=== PATIENT | female | born 1960 | race Caucasian/White ===

== ENCOUNTER 2017-03-28 21:45 | Emergency (ER) | payer SELFPAY ==
[~2017-03-28] VITALS: Ht 167.6 cm; Wt 81.6 kg
--- NOTE | 2017-03-28 21:57 | PHYS DOC ---
Adult General Chief Complaint Chief Complaint: NAUSEA/VOMITING/DIARRHA HPI HPI Patient is a 56 year old female who presents with 2 weeks of a productive cough sinus congestion, generalized bodyaches. She states she's having nausea vomiting and loose stools. She states over the last 2 days anything she eats or drink she vomits back up. She's having come from the right side of her chest on the lateral wall of her right hemithorax under her shoulder. She states is worse when she coughs. She states she still having generalized body aches. She states she does not have a primary care physician and does smoke daily. Review of Systems Review of Systems Constitutional: Denies fever or chills [] Eyes: Denies change in visual acuity, redness, or eye pain [] HENT: Positive for nasal congestion, Denies sore throat [] Respiratory: Positive for cough, denies shortness of breath [] Cardiovascular: No additional information not addressed in HPI [] GI: Denies abdominal pain, bloody stools, positive for nausea, vomiting, diarrhea [] : Denies dysuria or hematuria [] Musculoskeletal: Denies back pain or joint pain [] Integument: Denies rash or skin lesions [] Neurologic: Denies headache, focal weakness or sensory changes [] Endocrine: Denies polyuria or polydipsia [] All other systems were reviewed and found to be within normal limits, except as documented in this note. Current Medications Current Medications Current Medications Medications (Trade) Dose Ordered Sig/Heydi Start Time Stop Time Status Last Admin Dose Admin Azithromycin 250 ml @ 250 mls/hr 1X ONCE 03/29/17 00:30 03/29/17 01:29 Ondansetron HCl (Zofran) 4 mg STK-MED ONCE 03/28/17 22:31 03/28/17 22:32 DC Sodium Chloride 1,000 ml @ 1,000 mls/hr Q1H 03/28/17 23:00 03/28/17 23:59 DC 03/28/17 23:00 1,000 MLS/HR Allergies Allergies Allergies Coded Allergies Type Severity Reaction Last Updated Verified Sulfa (Sulfonamide Antibiotics) Allergy Intermediate 03/28/17 Yes Physical Exam Physical Exam Constitutional: Well developed, well nourished, no acute distress, non-toxic appearance. [] HENT: Normocephalic, atraumatic, bilateral external ears normal, oropharynx moist, no oral exudates, nose normal. [] Eyes: PERRLA, EOMI, conjunctiva normal, no discharge. [] Neck: Normal range of motion, no tenderness, supple, no stridor. [] Cardiovascular:Heart rate regular rhythm, no murmur [] Lungs & Thorax: Bilateral breath sounds clear to auscultation [] Abdomen: Bowel sounds normal, soft, no tenderness, no masses, no pulsatile masses. [] Skin: Warm, dry, no erythema, no rash. [] Back: No tenderness, no CVA tenderness. [] Extremities: No tenderness, no cyanosis, no clubbing, ROM intact, no edema. [] Neurologic: Alert and oriented X 3, normal motor function, normal sensory function, no focal deficits noted. [] Psychologic: Affect normal, judgement normal, mood normal. [] Current Patient Data Vital Signs Vital Signs Date Time Temp Pulse Resp B/P (MAP) Pulse Ox O2 Delivery O2 Flow Rate FiO2 03/28/17 22:00 98.4 88 18 175/95 (121) 95 Room Air 98.4 Lab Values Laboratory Tests Test 03/28/17 22:44 White Blood Count 11.0 x10^3/uL (4.0-11.0) Red Blood Count 4.85 x10^6/uL (3.50-5.40) Hemoglobin 14.0 g/dL (12.0-15.5) Hematocrit 42.9 % (36.0-47.0) Mean Corpuscular Volume 88 fL (79-100) Mean Corpuscular Hemoglobin 29 pg (25-35) Mean Corpuscular Hemoglobin Concent 33 g/dL (31-37) Red Cell Distribution Width 13.9 % (11.5-14.5) Platelet Count 359 x10^3/uL (140-400) Neutrophils (%) (Auto) 82 % (31-73) H Lymphocytes (%) (Auto) 10 % (24-48) L Monocytes (%) (Auto) 6 % (0-9) Eosinophils (%) (Auto) 1 % (0-3) Basophils (%) (Auto) 0 % (0-3) Neutrophils # (Auto) 9.0 x10^3uL (1.8-7.7) H Lymphocytes # (Auto) 1.1 x10^3/uL (1.0-4.8) Monocytes # (Auto) 0.7 x10^3/uL (0.0-1.1) Eosinophils # (Auto) 0.2 x10^3/uL (0.0-0.7) Basophils # (Auto) 0.0 x10^3/uL (0.0-0.2) Prothrombin Time 12.3 SEC (11.7-14.0) Prothrombin Time INR 1.0 (0.8-1.1) PTT 30 SEC (24-38) Sodium Level 140 mmol/L (136-145) Potassium Level 3.8 mmol/L (3.5-5.1) Chloride Level 103 mmol/L (98-107) Carbon Dioxide Level 26 mmol/L (21-32) Anion Gap 11 (6-14) Blood Urea Nitrogen 20 mg/dL (7-20) Creatinine 0.9 mg/dL (0.6-1.0) Estimated GFR (Cockcroft-Gault) 64.5 Glucose Level 120 mg/dL (70-99) H Calcium Level 8.5 mg/dL (8.5-10.1) Total Bilirubin 0.3 mg/dL (0.2-1.0) Direct Bilirubin 0.1 mg/dL (0.0-0.2) Aspartate Amino Transferase (AST) 17 U/L (15-37) Alanine Aminotransferase (ALT) 30 U/L (14-59) Alkaline Phosphatase 163 U/L (46-116) H Creatine Kinase 49 U/L (26-192) Creatine Kinase MB (Mass) < 0.5 ng/mL (0.0-3.6) Creatine Kinase MB Relative Index % (0-4) Troponin I Quantitative < 0.017 ng/mL (0.000-0.055) Total Protein 6.6 g/dL (6.4-8.2) Albumin 3.1 g/dL (3.4-5.0) L Lipase 96 U/L (73-393) Laboratory Tests 03/28/17 22:44 Laboratory Tests 03/28/17 22:44 EKG EKG [] Radiology/Procedures Radiology/Procedures [] Course & Med Decision Making Course & Med Decision Making Pertinent Labs and Imaging studies reviewed. (See chart for details) [] Dragon Disclaimer Dragon Disclaimer This electronic medical record was generated, in whole or in part, using a voice recognition dictation system. Departure Departure Impression: Primary Impression: Nausea Disposition: 01 HOME, SELF-CARE Condition: STABLE Referrals: NON,STAFF (PCP) Patient Instructions: Acute Bronchitis, [id number], Nausea, Adult Additional Instructions: Your EKG, chest x-ray, labs and physical exam did not show any acute abnormalities. You received IV fluids, and he was given antibiotics for bronchitis. Your being discharged home. You are being discharged with antibiotics, prednisone, and inhalers. Please follow instructions on the prescription. You should follow-up with primary care physician within the next 3 -4 days. Return back to the ER if you have high fevers, generalized weakness, shortness of breath, chest discomfort, or other concerns. Scripts Albuterol Sulfate (PROAIR HFA INHALER) 8.5 Gm Hfa.aer.ad 1-2 PUFF INH PRN Q6HRS Y for SHORTNESS OF BREATH, #1 INHALER 0 Refills Prov: DIDI BERGERON MD 03/29/17 Prednisone (PREDNISONE) 50 Mg Tablet 1 TAB PO DAILY, #5 TAB Prov: DIDI BERGERON MD 03/29/17 Azithromycin (AZITHROMYCIN TABLET) 250 Mg Tablet 1 PKG PO UD, #6 TAB Prov: DIDI BERGERON MD 03/29/17 DIDI BERGERON MD Mar 28, 2017 21:57
[2017-03-28 22:00] VITALS: BP 175/95
[2017-03-28] MEDS ORDERED: ONDANSETRON PF 4 MG/2 ML VIAL. ONE (22:31)
[2017-03-28 22:59] LABS: BASO % 0 % (0-3); EOS % 1 % (0-3); HEMATOCRIT 42.9 % (36.0-47.0); LYMPH # 1.1 x10^3/uL (1.0-4.8); LYMPH % 10 % (24-48); MEAN CORPUSCULAR HEMOGLOBIN 29 pg (25-35); MEAN CORPUSCULAR HGB CONC 33 g/dL (31-37); MEAN CORPUSCULAR VOLUME 88 fL (79-100); MONO % 6 % (0-9); NEUT % 82 % (31-73); PLATELET COUNT 359 x10^3/uL (140-400); RED BLOOD COUNT 4.85 x10^6/uL (3.50-5.40); RED CELL DISTRIBUTION WIDTH 13.9 % (11.5-14.5)
[2017-03-28] MEDS ORDERED: IV NORMAL SALINE 1000ML BAG 1,000 ML IV SCH (23:00)
[2017-03-28] MEDS ORDERED: ONDANSETRON PF 4 MG/2 ML VIAL. IV ONE (23:00)
[2017-03-28 23:06] LABS: PROTHROMBIN TIME PATIENT 12.3 SEC (11.7-14.0)
[2017-03-28 23:09] LABS: CALCIUM 8.5 mg/dL (8.5-10.1); CREATININE 0.9 mg/dL (0.6-1.0); GFR 64.5; POTASSIUM 3.8 mmol/L (3.5-5.1)
[2017-03-28 23:16] LABS: ALBUMIN 3.1 g/dL (3.4-5.0); DIRECT BILIRUBIN 0.1 mg/dL (0.0-0.2); TOTAL BILIRUBIN 0.3 mg/dL (0.2-1.0); TOTAL PROTEIN 6.6 g/dL (6.4-8.2)
[2017-03-28 23:29] LABS: CKMB MASS < 0.5 ng/mL (0.0-3.6); CREATINE KINASE 49 U/L (26-192)
[2017-03-29] MEDS ORDERED: AZITHRMYCN 500MG IVPB FOR OMNI 250 ML IV ONE (00:30)
[2017-03-29] MEDS ORDERED: AZIT250T6 PO (00:48)
[2017-03-29] MEDS ORDERED: PRED50TA PO (00:48)
[2017-03-29] MEDS ORDERED: PROAIR HFA8.5 GM INH (00:48)
--- NOTE | 2017-03-29 06:14 | EKG ---
[facility] [address] [place] [address] Test Date: 2017-03-28 Test Time: 22:45:25 Pat Name: TIMMY RANGEL Department: Room: Gender: F [employer]: : 1960 Requested By: DIDI BERGERON Order Number: [id number] Reading MD: Measurements Intervals [place] Rate: 84 P: 41 [place]: 194 QRS: -32 QRSD: 96 T: 70 QT: 388 QTc: 461 Interpretive Statements SINUS RHYTHM ABNORMAL LEFT AXIS DEVIATION LEFT ANTERIOR FASCICULAR BLOCK NON SPECIFIC T ABNORMALITY ABNORMAL ECG No previous ECG available for comparison
--- NOTE | 2017-03-29 07:49 | RAD ---
Acute abdomen series with chest, 3 views, 03/28/2017: History: Right lower quadrant abdominal pain Gas is present in large and small bowel extending down to the rectal level. There is only slight dilatation of several small bowel loops. Small scattered air-fluid levels are seen. The findings suggest a generalized ileus. No free air is present in the abdomen. Surgical clips are present in the right upper quadrant and in the left lower pelvis. The left ureteral stent evident on the 02/28/2011 study has been removed. The heart size and pulmonary vascularity are normal. The lungs are clear. There is no evidence of pleural fluid. IMPRESSION: Scattered air-fluid levels in the GI tract suggests a mild ileus.
== END 2017-03-29 01:40 | disposition home or self-care (01) ==
LOC: ER 21:45
DX: R11.2 Nausea with vomiting, unspecified (principal); R19.7 Diarrhea, unspecified; M79.1 Myalgia; R09.81 Nasal congestion; Z88.2 Allergy status to sulfonamides
CPT/HCPCS: 36415; 74022; 80048; 80076; 82553; 83690; 84484; 85025; 85610; 85730; 93005; 96365; 96375; 99285; J0456; J2405; J7030

== ENCOUNTER 2018-03-17 14:33 | Inpatient (IN) | payer SELFPAY ==
[~2018-03-17] VITALS: Ht 170.2 cm; Wt 74.8 kg
[~2018-03-17 14:33] MED LIST: AMLO10TA6 PO; ASPI325T11 PO; ATOR10TA60 PO; AZIT250T6 PO; PRED50TA PO; PROAIR HFA8.5 GM INH
[2018-03-17] MEDS ORDERED: IV NORMAL SALINE 1000ML BAG 1,000 ML IV ONE (15:00)
[2018-03-17 15:02] LABS: BASO # 0.1 x10^3/uL (0.0-0.2); BASO % 1 % (0-3); EOS # 0.3 x10^3/uL (0.0-0.7); EOS % 3 % (0-3); HEMATOCRIT 43.2 % (36.0-47.0); HEMOGLOBIN 14.7 g/dL (12.0-15.5); LYMPH # 2.8 x10^3/uL (1.0-4.8); LYMPH % 29 % (24-48); MEAN CORPUSCULAR HEMOGLOBIN 30 pg (25-35); MEAN CORPUSCULAR HGB CONC 34 g/dL (31-37); MEAN CORPUSCULAR VOLUME 89 fL (79-100); MONO # 0.9 x10^3/uL (0.0-1.1); MONO % 9 % (0-9); NEUT # 5.7 x10^3uL (1.8-7.7); NEUT % 58 % (31-73); PLATELET COUNT 422 x10^3/uL (140-400); RED BLOOD COUNT 4.87 x10^6/uL (3.50-5.40); RED CELL DISTRIBUTION WIDTH 13.6 % (11.5-14.5); WHITE BLOOD COUNT 9.8 x10^3/uL (4.0-11.0)
--- NOTE | 2018-03-17 15:05 | EKG ---
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 Electronically Signed On 03-19-2018 9:08:35 POLE PEELER by Devaughn Barnes
[2018-03-17 15:11] LABS: CALCIUM 9.6 mg/dL (8.5-10.1); CREATININE 1.2 mg/dL (0.6-1.0); GFR 46.1; POTASSIUM 3.9 mmol/L (3.5-5.1); PROTHROMBIN TIME PATIENT 13.2 SEC (11.7-14.0)
[2018-03-17 15:17] LABS: ALBUMIN 3.4 g/dL (3.4-5.0); ALBUMIN/GLOBULIN RATIO 0.8 (1.0-1.7); MAGNESIUM 2.2 mg/dL (1.8-2.4); TOTAL BILIRUBIN 0.4 mg/dL (0.2-1.0); TOTAL PROTEIN 7.9 g/dL (6.4-8.2)
--- NOTE | 2018-03-17 15:18 | PHYS DOC ---
Past Medical History Past Medical History: CVA, Hypertension Past Surgical History: Cholecystectomy Additional Past Surgical Histo: STENTS Alcohol Use: None Drug Use: None Adult General Chief Complaint Chief Complaint: NEURO SYMPTOMS/DEFICITS HPI HPI Patient is a 57 year old female who presents with worsening R sided weakness and slowed speech. 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 Pt notes last known well at 12 pm today but notes changes in speech and balance over the last 2 days. Pt notes she has been taking aspirin and other medications as prescribed from when she was discharged from the hospital on . Pt also noting that she had chest pain and generalized weakness yesterday. Denies trauma. Denies fever/chills. Review of Systems Review of Systems Constitutional: Denies fever or chills [] Eyes: Denies change in visual acuity, redness, or eye pain [] HENT: Denies nasal congestion or sore throat [] Respiratory: Denies cough or shortness of breath [] Cardiovascular: Notes chest pain, denies palpitations[] GI: Denies abdominal pain, nausea, vomiting, bloody stools or diarrhea [] : Denies dysuria or hematuria [] Musculoskeletal: Denies back pain or joint pain [] Integument: Denies rash or skin lesions [] Neurologic: Denies headache or sensory changes. Notes R sided weakness [] Complete other systems were reviewed and found to be within normal limits, except as documented in this note. Current Medications Current Medications Current Medications Medications (Trade) Dose Ordered Sig/Heydi Start Time Stop Time Status Last Admin Dose Admin Ondansetron HCl (Zofran) 4 mg PRN Q8HRS PRN 03/17/18 15:45 03/18/18 15:44 Sodium Chloride 1,000 ml @ 1,000 mls/hr 1X ONCE 03/17/18 15:00 03/17/18 15:59 Allergies Allergies Allergies Coded Allergies Type Severity Reaction Last Updated Verified Sulfa (Sulfonamide Antibiotics) Allergy Intermediate 03/28/17 Yes codeine Allergy Intermediate 02/01/18 Yes Physical Exam Physical Exam Constitutional: Well developed, well nourished, no acute distress, non-toxic appearance. [] HENT: Normocephalic, atraumatic, oropharynx moist, no oral exudates, nose normal. [] Eyes: PERRL, EOMI, conjunctiva normal, no discharge. [] Neck: Normal range of motion, no tenderness, supple, no stridor. [] Cardiovascular:Heart rate regular rhythm, no murmur [] Lungs & Thorax: Bilateral breath sounds clear to auscultation [] Abdomen: Bowel sounds normal, soft, no tenderness, nondistended, no guarding. [ ] Skin: Warm, dry, no erythema, no rash. [] Back: No tenderness, no CVA tenderness. [] Extremities: No tenderness, no cyanosis, ROM intatct, no edema. [] Neurologic: Alert and oriented X 3, normal motor function other than RUE +4/5 and RLE +3/5, normal sensory function, normal cerebellar function. [] Psychologic: Affect normal, judgement normal, mood normal. [] Current Patient Data Vital Signs Vital Signs Date Time Temp Pulse Resp B/P (MAP) Pulse Ox O2 Delivery O2 Flow Rate FiO2 03/17/18 14:41 97.7 16 144/83 (103) Room Air 97.7 Lab Values Laboratory Tests Test 03/17/18 14:48 03/17/18 14:50 Glucose (Fingerstick) 98 mg/dL (70-99) White Blood Count 9.8 x10^3/uL (4.0-11.0) Red Blood Count 4.87 x10^6/uL (3.50-5.40) Hemoglobin 14.7 g/dL (12.0-15.5) Hematocrit 43.2 % (36.0-47.0) Mean Corpuscular Volume 89 fL (79-100) Mean Corpuscular Hemoglobin 30 pg (25-35) Mean Corpuscular Hemoglobin Concent 34 g/dL (31-37) Red Cell Distribution Width 13.6 % (11.5-14.5) Platelet Count 422 x10^3/uL (140-400) H Neutrophils (%) (Auto) 58 % (31-73) Lymphocytes (%) (Auto) 29 % (24-48) Monocytes (%) (Auto) 9 % (0-9) Eosinophils (%) (Auto) 3 % (0-3) Basophils (%) (Auto) 1 % (0-3) Neutrophils # (Auto) 5.7 x10^3uL (1.8-7.7) Lymphocytes # (Auto) 2.8 x10^3/uL (1.0-4.8) Monocytes # (Auto) 0.9 x10^3/uL (0.0-1.1) Eosinophils # (Auto) 0.3 x10^3/uL (0.0-0.7) Basophils # (Auto) 0.1 x10^3/uL (0.0-0.2) Prothrombin Time 13.2 SEC (11.7-14.0) Prothrombin Time INR 1.1 (0.8-1.1) PTT 31 SEC (24-38) Sodium Level 140 mmol/L (136-145) Potassium Level 3.9 mmol/L (3.5-5.1) Chloride Level 105 mmol/L (98-107) Carbon Dioxide Level 24 mmol/L (21-32) Anion Gap 11 (6-14) Blood Urea Nitrogen 24 mg/dL (7-20) H Creatinine 1.2 mg/dL (0.6-1.0) H Estimated GFR (Cockcroft-Gault) 46.1 BUN/Creatinine Ratio 20 (6-20) Glucose Level 106 mg/dL (70-99) H Calcium Level 9.6 mg/dL (8.5-10.1) Magnesium Level 2.2 mg/dL (1.8-2.4) Total Bilirubin 0.4 mg/dL (0.2-1.0) Aspartate Amino Transferase (AST) 20 U/L (15-37) Alanine Aminotransferase (ALT) 32 U/L (14-59) Alkaline Phosphatase 167 U/L (46-116) H Creatine Kinase 73 U/L (26-192) Creatine Kinase MB (Mass) 1.3 ng/mL (0.0-3.6) Creatine Kinase MB Relative Index % (0-4) Troponin I Quantitative < 0.017 ng/mL (0.000-0.055) Total Protein 7.9 g/dL (6.4-8.2) Albumin 3.4 g/dL (3.4-5.0) Albumin/Globulin Ratio 0.8 (1.0-1.7) L Laboratory Tests 03/17/18 14:50 Laboratory Tests 03/17/18 14:50 EKG EKG Rate 78, RI 194, QTc 444. Sinus, No STEMI, left axis deviation, left anterior fascicular block. Compared with prior EKG done on 01/31/18, no significant change noted. [] Radiology/Procedures Radiology/Procedures PROCEDURE: CT CODE STROKE HEAD WO CT of the head without contrast, 03/17/2018: HISTORY: Right-sided weakness, slurred speech Comparison is made to a study from 01/31/2018. There are patchy lucencies in the deep white matter bilaterally as well as in the basal ganglia. These are unchanged and are compatible with old infarcts. A high right frontoparietal lucency is unchanged and is compatible with encephalomalacia due to an old infarct. On the previous study there was a lucency in the pablo, however, there is now a new 9 mm focus of increased density within the left side of the pablo. This lies at the level where an acute appearing infarct was identified on the MR study of 02/01/2018. The appearance suggests subacute hemorrhage. Developing calcification is less likely. There is no significant mass effect in this region. The ventricles are within normal limits in size. There is no shift of the midline structures. IMPRESSION: 1. Multiple old cerebral, basal ganglia and pontine infarcts. 2. New focus of increased density within the left pablo corresponding to site of a recent infarct. This probably represents subacute hemorrhage. 3. MR scanning may be useful for further evaluation, if clinically indicated. Note: The findings were called to personnel in the [facility] ER at 3:23 PM on 03/17/2018. RS Compliance Statement: One or more of the following individualized dose reduction techniques were utilized for this examination: 1. Automated exposure control 2. Adjustment of the mA and/or kV according to patient size 3. Use of iterative reconstruction technique Electronically signed by: Mika Christine MD (03/17/2018 3:28 PM) [facility] PROCEDURE: PORTABLE CHEST 1V Exam: AP portable chest History: Increased right-sided weakness. Comparison: January 31, 2018. Findings: The heart and mediastinal structures are within normal limits for size. Lungs are without infiltrate. No pleural effusion or pneumothorax is identified. Impression: 1. No acute cardiopulmonary process. Electronically signed by: Reji Wasserman MD (03/17/2018 3:29 PM) [place] [id number] Course & Med Decision Making Course & Med Decision Making 57 yo female with ischemic CVA on 01/31/18 presenting with worsening R sided weakness. Pt states LKW was 2.5 hours before presentation but states changes have been present for 2 days. Patient NIHSS 4. Labs obtained and posted to chart. CT head with findings consistent for subacute hemorrhage around prior ischemic CVA. Discussed case with Dr. Marie (neurology) who is in agreement with consultation. Patient requiring admission for further evaluation and treatment. Discussed with Dr. Miguel (hospitalist) who is in agreement with admission. Discussed findings and plan with patient and family, who acknowledge understanding and agreement. [] Dragon Disclaimer Dragon Disclaimer This electronic medical record was generated, in whole or in part, using a voice recognition dictation system. Departure Departure Impression: Primary Impression: Subacute intracranial hemorrhage Disposition: ADMITTED INPATIENT Admitting Physician: Cecily Miguel Condition: GUARDED Referrals: NO PCP (PCP) NIHSS Stroke Scale NIH Stroke Scale: NIH Stroke Scale Response (Comments) Value Level of Consciousness: 0 Alert/Responsive 0 LOC Questions: 0 Answers both correctly 0 LOC Commands: 0 Performs both tasks 0 Best Gaze: 0 Normal 0 Visual: 0 No visual loss 0 Facial Palsy: 1 Minor paralysis 1 Motor - Left Arm 0 No drift 0 Motor - Right Arm 1 Drifts but can hold 1 Motor - Left Leg 0 No drift 0 Motor: Right Leg 1 Drift but can hold 1 Limb Ataxia: 0 Absent 0 Sensory: 0 No loss 0 Best Language: 1 Mild to mod aphasia 1 Dysathria: 0 Normal 0 Extinction and Inattention: 0 Normal 0 Total 4 Critical Care Time Critical care time was 30 minutes which includes time at bedside, spent in discussion of patient's care with specialists and/or family members, with interpretation of laboratory and/or radiological studies and is exclusive of procedures. REJI MARTE DO Mar 17, 2018 15:18
[2018-03-17 15:25] LABS: CREATINE KINASE 73 U/L (26-192)
--- NOTE | 2018-03-17 15:31 | RAD ---
CT of the head without contrast, 03/17/2018: HISTORY: Right-sided weakness, slurred speech Comparison is made to a study from 01/31/2018. There are patchy lucencies in the deep white matter bilaterally as well as in the basal ganglia. These are unchanged and are compatible with old infarcts. A high right frontoparietal lucency is unchanged and is compatible with encephalomalacia due to an old infarct. On the previous study there was a lucency in the pablo, however, there is now a new 9 mm focus of increased density within the left side of the pablo. This lies at the level where an acute appearing infarct was identified on the MR study of 02/01/2018. The appearance suggests subacute hemorrhage. Developing calcification is less likely. There is no significant mass effect in this region. The ventricles are within normal limits in size. There is no shift of the midline structures. IMPRESSION: 1. Multiple old cerebral, basal ganglia and pontine infarcts. 2. New focus of increased density within the left pablo corresponding to site of a recent infarct. This probably represents subacute hemorrhage. 3. MR scanning may be useful for further evaluation, if clinically indicated. Note: The findings were called to personnel in the [facility] ER at 3:23 PM on 03/17/2018. PQRS Compliance Statement: One or more of the following individualized dose reduction techniques were utilized for this examination: 1. Automated exposure control 2. Adjustment of the mA and/or kV according to patient size 3. Use of iterative reconstruction technique Electronically signed by: Mika Christine MD (03/17/2018 3:28 PM) [facility]
--- NOTE | 2018-03-17 15:32 | RAD ---
Exam: AP portable chest History: Increased right-sided weakness. Comparison: January 31, 2018. Findings: The heart and mediastinal structures are within normal limits for size. Lungs are without infiltrate. No pleural effusion or pneumothorax is identified. Impression: 1. No acute cardiopulmonary process. Electronically signed by: Reji Wasserman MD (03/17/2018 3:29 PM) [place] [id number]
[2018-03-17] MEDS ORDERED: ONDANSETRON PF 4 MG/2 ML VIAL. IV PRN ×2 (15:45→16:15)
[2018-03-17] MEDS ORDERED: PHARMACY TO REVIEW MEDS MC PRN (16:15)
[2018-03-17] MEDS ORDERED: ACETAMINOPHEN 650 MG SUPP.RECT. PR PRN (16:15)
[2018-03-17] MEDS ORDERED: LABETALOL 20 MG/4 ML DISP.SYRIN. IVP PRN (16:15)
--- NOTE | 2018-03-17 16:21 | PDOC2 ---
NEUROLOGY CONSULT Date of Admission Date of Admission DATE: 03/17/18 TIME: 16:04 Reason for Consult Reason for Consult: Stroke symptoms Referring Physician Referring Physician: Dr. Miguel Source Source: Caregiver (), Chart review, Patient History of Present Illness History of Present Illness The patient is a 57-year-old right-handed female who had a left pontine stroke for which I saw her 6 weeks ago during her [facility] stay. She did not have insurance benefits for rehabilitation so went home. She had been doing well until the last few days when she has noticed some increased dysarthria and right-sided weakness and clumsiness. She did have a headache last night which persists, 09/29. She denies any headache injuries or seizures. She has been taking all of her medications but admits that she continues to smoke cigarettes. Past Medical History Cardiovascular: HTN, Hyperlipidemia CENTRAL NERVOUS SYSTEM: CVA Past Surgical History Past Surgical History: No pertinent history Family History Family History: CVA Social History Social History , smokes a half a pack of cigarettes per day, rare alcohol Current Medications Current Medications Current Medications Sodium Chloride 1,000 ml @ 1,000 mls/hr 1X ONCE IV ; Start 03/17/18 at 15:00 ; Stop 03/17/18 at 15:59; Status DC Ondansetron HCl (Zofran) 4 mg PRN Q8HRS PRN IV NAUSEA/VOMITING; Start at 15:45; Stop 03/18/18 at 15:44 Active Scripts Active Aspirin Ec (Aspirin) 325 Mg Tablet.dr 325 Mg PO DAILYWBKFT 30 Days Amlodipine Besylate 10 Mg Tablet 10 Mg PO DAILY 30 Days Atorvastatin Calcium 10 Mg Tablet 10 Mg PO QHS 30 Days Proair Hfa Inhaler (Albuterol Sulfate) 8.5 Gm Hfa.aer.ad 1-2 Puff INH PRN Q6HRS PRN Allergies Allergies: Coded Allergies: Sulfa (Sulfonamide Antibiotics) (Verified Allergy, Intermediate, 03/28/17) codeine (Verified Allergy, Intermediate, 02/01/18) ROS Review of System Negative for fever, chills, weight loss, shortness of breath, chest pain, indigestion, hematochezia, melena, and dysuria. Full 14-point review of systems is negative. Physical Exam Physical Examination General: Well-developed, well-nourished, white female, in no acute distress HEENT: Normocephalic andatraumatic.Temporal arteriespulsatile and nontender. Neck: Supple without bruit, no meningismus Musculoskeletal: Stability:see neurologic. Gait exam:see neurologic. Tone:see neurologic. Strength:see neurologic. Neurological: Mental Status:intact, orientation, memory, attention span/concentration, language, fund of knowledge normal. Cranial Nerves:Pupils equal and reactive to light, extraocular movements areintact, visual palmer are full to confrontation. Facial sensation is normal. There is no facial asymmetry. Vestibulo-ocular reflex is intact. Palate elvates and tongue protrudes in midline. All other cranial related problems are negative except as mentioned before.Reflexes:2+ and symmetric with flexor plantar responses. Motor:5-/5 right hemiparesis, otherwise 5/5 strength with normal tone and bulk. Coordination:Right dysmetria. Rapid alternating movements and fine finger movements are intact. Gait:not examined. Sensory:Normal pinprick, vibration, light touch, proprioception. Vitals VITALS Vital Signs Date Time Temp Pulse Resp B/P (MAP) Pulse Ox O2 Delivery O2 Flow Rate FiO2 03/17/18 14:41 97.7 16 144/83 (103) Room Air 97.7 Labs Labs Laboratory Tests Test 03/17/18 14:48 03/17/18 14:50 Glucose (Fingerstick) 98 mg/dL (70-99) White Blood Count 9.8 x10^3/uL (4.0-11.0) Red Blood Count 4.87 x10^6/uL (3.50-5.40) Hemoglobin 14.7 g/dL (12.0-15.5) Hematocrit 43.2 % (36.0-47.0) Mean Corpuscular Volume 89 fL (79-100) Mean Corpuscular Hemoglobin 30 pg (25-35) Mean Corpuscular Hemoglobin Concent 34 g/dL (31-37) Red Cell Distribution Width 13.6 % (11.5-14.5) Platelet Count 422 x10^3/uL (140-400) Neutrophils (%) (Auto) 58 % (31-73) Lymphocytes (%) (Auto) 29 % (24-48) Monocytes (%) (Auto) 9 % (0-9) Eosinophils (%) (Auto) 3 % (0-3) Basophils (%) (Auto) 1 % (0-3) Neutrophils # (Auto) 5.7 x10^3uL (1.8-7.7) Lymphocytes # (Auto) 2.8 x10^3/uL (1.0-4.8) Monocytes # (Auto) 0.9 x10^3/uL (0.0-1.1) Eosinophils # (Auto) 0.3 x10^3/uL (0.0-0.7) Basophils # (Auto) 0.1 x10^3/uL (0.0-0.2) Prothrombin Time 13.2 SEC (11.7-14.0) Prothromb Time International Ratio 1.1 (0.8-1.1) Activated Partial Thromboplast Time 31 SEC (24-38) Sodium Level 140 mmol/L (136-145) Potassium Level 3.9 mmol/L (3.5-5.1) Chloride Level 105 mmol/L (98-107) Carbon Dioxide Level 24 mmol/L (21-32) Anion Gap 11 (6-14) Blood Urea Nitrogen 24 mg/dL (7-20) Creatinine 1.2 mg/dL (0.6-1.0) Estimated GFR (Cockcroft-Gault) 46.1 BUN/Creatinine Ratio 20 (6-20) Glucose Level 106 mg/dL (70-99) Calcium Level 9.6 mg/dL (8.5-10.1) Magnesium Level 2.2 mg/dL (1.8-2.4) Total Bilirubin 0.4 mg/dL (0.2-1.0) Aspartate Amino Transf (AST/SGOT) 20 U/L (15-37) Alanine Aminotransferase (ALT/SGPT) 32 U/L (14-59) Alkaline Phosphatase 167 U/L (46-116) Creatine Kinase 73 U/L (26-192) Creatine Kinase MB (Mass) 1.3 ng/mL (0.0-3.6) Creatine Kinase MB Relative Index % (0-4) Troponin I Quantitative < 0.017 ng/mL (0.000-0.055) Total Protein 7.9 g/dL (6.4-8.2) Albumin 3.4 g/dL (3.4-5.0) Albumin/Globulin Ratio 0.8 (1.0-1.7) Laboratory Tests Test 03/17/18 14:48 03/17/18 14:50 Glucose (Fingerstick) 98 mg/dL (70-99) White Blood Count 9.8 x10^3/uL (4.0-11.0) Red Blood Count 4.87 x10^6/uL (3.50-5.40) Hemoglobin 14.7 g/dL (12.0-15.5) Hematocrit 43.2 % (36.0-47.0) Mean Corpuscular Volume 89 fL (79-100) Mean Corpuscular Hemoglobin 30 pg (25-35) Mean Corpuscular Hemoglobin Concent 34 g/dL (31-37) Red Cell Distribution Width 13.6 % (11.5-14.5) Platelet Count 422 x10^3/uL (140-400) Neutrophils (%) (Auto) 58 % (31-73) Lymphocytes (%) (Auto) 29 % (24-48) Monocytes (%) (Auto) 9 % (0-9) Eosinophils (%) (Auto) 3 % (0-3) Basophils (%) (Auto) 1 % (0-3) Neutrophils # (Auto) 5.7 x10^3uL (1.8-7.7) Lymphocytes # (Auto) 2.8 x10^3/uL (1.0-4.8) Monocytes # (Auto) 0.9 x10^3/uL (0.0-1.1) Eosinophils # (Auto) 0.3 x10^3/uL (0.0-0.7) Basophils # (Auto) 0.1 x10^3/uL (0.0-0.2) Prothrombin Time 13.2 SEC (11.7-14.0) Prothromb Time International Ratio 1.1 (0.8-1.1) Activated Partial Thromboplast Time 31 SEC (24-38) Sodium Level 140 mmol/L (136-145) Potassium Level 3.9 mmol/L (3.5-5.1) Chloride Level 105 mmol/L (98-107) Carbon Dioxide Level 24 mmol/L (21-32) Anion Gap 11 (6-14) Blood Urea Nitrogen 24 mg/dL (7-20) Creatinine 1.2 mg/dL (0.6-1.0) Estimated GFR (Cockcroft-Gault) 46.1 BUN/Creatinine Ratio 20 (6-20) Glucose Level 106 mg/dL (70-99) Calcium Level 9.6 mg/dL (8.5-10.1) Magnesium Level 2.2 mg/dL (1.8-2.4) Total Bilirubin 0.4 mg/dL (0.2-1.0) Aspartate Amino Transf (AST/SGOT) 20 U/L (15-37) Alanine Aminotransferase (ALT/SGPT) 32 U/L (14-59) Alkaline Phosphatase 167 U/L (46-116) Creatine Kinase 73 U/L (26-192) Creatine Kinase MB (Mass) 1.3 ng/mL (0.0-3.6) Creatine Kinase MB Relative Index % (0-4) Troponin I Quantitative < 0.017 ng/mL (0.000-0.055) Total Protein 7.9 g/dL (6.4-8.2) Albumin 3.4 g/dL (3.4-5.0) Albumin/Globulin Ratio 0.8 (1.0-1.7) Images Images CT head today: There are patchy lucencies in the deep white matter bilaterally as well as in the basal ganglia. These are unchanged and are compatible with old infarcts. A high right frontoparietal lucency is unchanged and is compatible with encephalomalacia due to an old infarct. On the previous study there was a lucency in the pablo, however, there is now a new 9 mm focus of increased density within the left side of the pablo. This lies at the level where an acute appearing infarct was identified on the MR study of 02/01/2018. The appearance suggests subacute hemorrhage. Developing calcification is less likely. There is no significant mass effect in this region. The ventricles are within normal limits in size. There is no shift of the midline structures. IMPRESSION: 1. Multiple old cerebral, basal ganglia and pontine infarcts. 2. New focus of increased density within the left pablo corresponding to site of a recent infarct. This probably represents subacute hemorrhage. 3. MR scanning may be useful for further evaluation, if clinically indicated. 01/31/18: MRI brain: There is approximate 1 cm AP by 0.5 cm transverse focus of restricted diffusion of the left pablo, associated mild T2 and FLAIR hyperintense signal. There are other old lacunar infarcts of the bilateral pablo, bilateral cerebellum, bilateral thalami, right periatrial white matter, bilateral basal ganglia, modi radiata. There is no abnormal intracranial enhancement. There is no midline shift. Ventricular size is within normal limits. There is likely small arachnoid cyst right parietal vertex about 1.5 cm. There is other scattered multifocal overall mild T2 and FLAIR hyperintense signal abnormality of the supratentorial parenchyma bilaterally. There is mild left maxillary sinus mucosal thickening. Mastoid air cells are aerated. Cerebellar tonsils are normal in location. Pituitary gland is small. There is slightly disconjugate gaze. Impression: 1. There is a recent acute/early subacute infarct of the left pablo. There are multiple old bilateral lacunar infarcts as stated, other mild T2 and FLAIR hyperintense abnormality of the supratentorial parenchyma which may be due to chronic microvascular ischemic disease. Carotids: RIGHT: PSV cm/sec EDV cm/sec Common carotid artery 58 14 Maximal internal carotid artery 63 19 External carotid artery 69 Vertebral artery 48 ICA/CCA ratio 1.07 LEFT: PSV cm/sec EDV cm/sec Common carotid artery 75 15 Maximum internal carotid artery 55 19 External carotid artery 105 Vertebral artery 38 ICA/CCA ratio 0.73 Velocities used to determine stenosis are known to correlate with NASCET angiographic criteria. There is antegrade flow in the bilateral vertebral arteries. No significant stenosis is demonstrated on grayscale or color images. There is minimal plaque. Impression: 1. There is no evidence of a hemodynamically significant stenosis. Assessment/Plan Assessment/Plan Impression: Hemorrhage in region of prior left pontine acute lacunar type stroke with right hemiparesis and some dysarthria Noncompliance (still smoking) Recommendations: MRI of the brain CT angiogram Rehabilitation modalities Hold aspirin and anticoagulants Statin Blood pressure parameters per protocol Given the overall exam and condition I see no need for ICU monitoring I again counseled the patient to stop smoking and she is willing to do so. Thank you for letting me help with the patient's care. ALBERTO TVOAR MD Mar 17, 2018 16:21
[2018-03-17 16:30] VITALS: BP 112/82
[2018-03-17] MEDS ORDERED: ALBUTEROL SULFATE 2.5 MG/3 ML NEBU. NEB PRN (16:30)
[2018-03-17] MEDS: IV NORMAL SALINE 1000ML BAG 1,000 ML IV SCH (16:30)
[2018-03-17] MEDS: amLODIPine BESYLATE 10 MG TABLET PO SCH (17:00)
[2018-03-17 19:30] VITALS: BP 123/83
--- NOTE | 2018-03-17 19:52 | HP ---
ADMIT DATE: 03/17/2018 CHIEF COMPLAINT: Right arm weakness. HISTORY OF PRESENT ILLNESS: The patient is a pleasant middle-aged female who we admitted about a month ago with a stroke. She had right-sided weakness. She went home with that and was doing relatively well and was getting better, but now suddenly the weakness on the right got worse. We did a CAT scan in the ER. She does have some worsening of some extension of the stroke and maybe even a little bit of blood surrounding that, rates her symptoms at 9/10 with associated anxiety. Symptoms are worse with trying to move. She tried taking some home meds, but that did not help. I have discussed the case with ER physician. We are going to admit the patient and consult Neurology. PAST MEDICAL HISTORY: Hypertension, stroke, cholecystectomy, cardiac stents. ALLERGIES: SULFA AND CODEINE. FAMILY HISTORY: Strokes. SOCIAL HISTORY: She does not drink, smoke or take drugs. MEDICATIONS: Reviewed, please refer to MRAD. She is on 4 home medications including albuterol, atorvastatin, amlodipine, aspirin. REVIEW OF SYSTEMS: GENERAL: No history of weight change, weakness or fevers. SKIN: No bruising, hair changes or rashes. EYES: No blurred, double or loss of vision. NOSE AND THROAT: No history of nosebleeds, hoarseness or sore throat. HEART: No history of palpitations, chest pain or shortness of breath on exertion. LUNGS: Denies cough, hemoptysis, wheezing or shortness of breath. GASTROINTESTINAL: Denies changes in appetite, nausea, vomiting, diarrhea or constipation. GENITOURINARY: No history of frequency, urgency, hesitancy or nocturia. NEUROLOGIC: She complains of right-arm weakness. PSYCHIATRIC: No history of panic, anxiety or depression. ENDOCRINE: No history of heat or cold intolerance, polyuria or polydipsia. EXTREMITIES: Denies muscle weakness, joint pain, pain on walking or stiffness. PHYSICAL EXAMINATION: VITAL SIGNS: Temperature 98, pulse 84, respirations 17, blood pressure 112/82, O2 sat 95%. GENERAL: She is alert, cooperative, flat affect, but this seems to be her baseline. HEART: Distant S1, S2. LUNGS: Clear to auscultation. ABDOMEN: Soft, positive bowel sounds, no organomegaly. EXTREMITIES: Trace edema. Pedal pulses are intact. ENDOCRINE: No thyromegaly. LYMPHATICS: No cervical chain or axillary nodes were noted. HEMATOPOIETIC: No bruising. PSYCHIATRIC: She is a little depressed. 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 LABORATORY DATA: Hematology is normal. Electrolytes are normal other than a BUN of 24, creatinine 1.2, glucose 106. Troponin is 0. INR is 1. CT of the head shows extension of stoke with a little bit of blood. ASSESSMENT AND PLAN: Acute on chronic stroke with extension of her stroke. There is also a subacute hemorrhage. The patient has been admitted. We will consult Neurology and consult Neurosurgery. PT, OT and Speech Therapy. Resume home medicines, cardiac monitoring. We will need to reimage her brain in a day or two. Full code. Seizure precautions, p.r.n. Zofran, clear liquid diet. DVT prophylaxis and p.r.n. narcotics for pain. SILVINO JOHNSON DO DR: FERNANDO/lavelle JOB#: [id number] / [id number]
[2018-03-17] MEDS ORDERED: ATORVASTATIN CALCIUM 10 MG TABLET. PO SCH (21:00)
[2018-03-17 23:30] VITALS: BP 138/88
[2018-03-18] MEDS: IV NORMAL SALINE 1000ML BAG 1,000 ML IV SCH ×2 (03:11→12:30)
[2018-03-18 03:30] VITALS: BP 134/92
[2018-03-18 07:25] VITALS: BP 148/87
--- NOTE | 2018-03-18 07:48 | PDOC ---
PROGRESS NOTES Chief Complaint Chief Complaint HTN Smoker Prior CVA Acute CVA Hemorrhagic CVA History of Present Illness History of Present Illness 57-year-old female w/PMHx HTN, smoker, prior CVA admitted with right hand weakness and dysarthria found with left pontine CVA likely hemorrhagic on CT She did have a headache last night which persists, 09/29. She denies any headache injuries or seizures. Compliant with medications but admits that she continues to smoke cigarettes. This morning feels a little stronger and feels her speech has improved. 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 CT Head 1. Multiple old cerebral, basal ganglia and pontine infarcts. 2. New focus of increased density within the left pablo corresponding to site of a recent infarct. This probably represents subacute hemorrhage. 3. MR scanning may be useful for further evaluation, if clinically indicated. A/P: Acute on chronic stroke with extension of CVA - will cont statin, rehab modalities, hold ASA and anticoagulants for concomitant hemorrhagic CVA Subacute hemorrhagic pontine CVA on left - MRI per neurology PT, OT and Speech Therapy. Resume home medicines, cardiac monitoring. Seizure precautions, p.r.n. Zofran p.r.n. narcotics for pain. HTN - BP goal per neuro Smoker - cessation discussed in depth FEN - dysphagia, TURRET LATHE OPERATOR to see PPX - SCDs Full code Inpatient for MRI, new CVA admission, will need rehab and at least 2 midnights of care Vitals Vitals Vital Signs Date Time Temp Pulse Resp B/P (MAP) Pulse Ox O2 Delivery O2 Flow Rate FiO2 03/18/18 07:25 97.9 77 18 148/87 (107) 96 Room Air 97.9 Physical Exam General: Alert, Oriented X3, Cooperative Heart: Regular rate, No murmurs Lungs: Clear Abdomen: Normal bowel sounds, Soft, No tenderness, No hepatosplenomegaly Extremities: No clubbing, No cyanosis, No edema, Normal pulses Skin: No rashes, No breakdown, No significant lesion Labs LABS Laboratory Tests Test 03/17/18 14:48 03/17/18 14:50 03/17/18 18:30 03/17/18 21:20 Glucose (Fingerstick) 98 mg/dL (70-99) White Blood Count 9.8 x10^3/uL (4.0-11.0) Red Blood Count 4.87 x10^6/uL (3.50-5.40) Hemoglobin 14.7 g/dL (12.0-15.5) Hematocrit 43.2 % (36.0-47.0) Mean Corpuscular Volume 89 fL (79-100) Mean Corpuscular Hemoglobin 30 pg (25-35) Mean Corpuscular Hemoglobin Concent 34 g/dL (31-37) Red Cell Distribution Width 13.6 % (11.5-14.5) Platelet Count 422 x10^3/uL (140-400) Neutrophils (%) (Auto) 58 % (31-73) Lymphocytes (%) (Auto) 29 % (24-48) Monocytes (%) (Auto) 9 % (0-9) Eosinophils (%) (Auto) 3 % (0-3) Basophils (%) (Auto) 1 % (0-3) Neutrophils # (Auto) 5.7 x10^3uL (1.8-7.7) Lymphocytes # (Auto) 2.8 x10^3/uL (1.0-4.8) Monocytes # (Auto) 0.9 x10^3/uL (0.0-1.1) Eosinophils # (Auto) 0.3 x10^3/uL (0.0-0.7) Basophils # (Auto) 0.1 x10^3/uL (0.0-0.2) Prothrombin Time 13.2 SEC (11.7-14.0) Prothromb Time International Ratio 1.1 (0.8-1.1) Activated Partial Thromboplast Time 31 SEC (24-38) Sodium Level 140 mmol/L (136-145) Potassium Level 3.9 mmol/L (3.5-5.1) Chloride Level 105 mmol/L (98-107) Carbon Dioxide Level 24 mmol/L (21-32) Anion Gap 11 (6-14) Blood Urea Nitrogen 24 mg/dL (7-20) Creatinine 1.2 mg/dL (0.6-1.0) Estimated GFR (Cockcroft-Gault) 46.1 BUN/Creatinine Ratio 20 (6-20) Glucose Level 106 mg/dL (70-99) Calcium Level 9.6 mg/dL (8.5-10.1) Magnesium Level 2.2 mg/dL (1.8-2.4) Total Bilirubin 0.4 mg/dL (0.2-1.0) Aspartate Amino Transf (AST/SGOT) 20 U/L (15-37) Alanine Aminotransferase (ALT/SGPT) 32 U/L (14-59) Alkaline Phosphatase 167 U/L (46-116) Creatine Kinase 73 U/L (26-192) Creatine Kinase MB (Mass) 1.3 ng/mL (0.0-3.6) Creatine Kinase MB Relative Index % (0-4) Troponin I Quantitative < 0.017 ng/mL (0.000-0.055) < 0.017 ng/mL (0.000-0.055) < 0.017 ng/mL (0.000-0.055) Total Protein 7.9 g/dL (6.4-8.2) Albumin 3.4 g/dL (3.4-5.0) Albumin/Globulin Ratio 0.8 (1.0-1.7) Comment Review of Relevant I have reviewed the following items corky (where applicable) has been applied. Labs Laboratory Tests Test 03/17/18 14:48 03/17/18 14:50 03/17/18 18:30 03/17/18 21:20 Glucose (Fingerstick) 98 mg/dL (70-99) White Blood Count 9.8 x10^3/uL (4.0-11.0) Red Blood Count 4.87 x10^6/uL (3.50-5.40) Hemoglobin 14.7 g/dL (12.0-15.5) Hematocrit 43.2 % (36.0-47.0) Mean Corpuscular Volume 89 fL (79-100) Mean Corpuscular Hemoglobin 30 pg (25-35) Mean Corpuscular Hemoglobin Concent 34 g/dL (31-37) Red Cell Distribution Width 13.6 % (11.5-14.5) Platelet Count 422 x10^3/uL (140-400) Neutrophils (%) (Auto) 58 % (31-73) Lymphocytes (%) (Auto) 29 % (24-48) Monocytes (%) (Auto) 9 % (0-9) Eosinophils (%) (Auto) 3 % (0-3) Basophils (%) (Auto) 1 % (0-3) Neutrophils # (Auto) 5.7 x10^3uL (1.8-7.7) Lymphocytes # (Auto) 2.8 x10^3/uL (1.0-4.8) Monocytes # (Auto) 0.9 x10^3/uL (0.0-1.1) Eosinophils # (Auto) 0.3 x10^3/uL (0.0-0.7) Basophils # (Auto) 0.1 x10^3/uL (0.0-0.2) Prothrombin Time 13.2 SEC (11.7-14.0) Prothromb Time International Ratio 1.1 (0.8-1.1) Activated Partial Thromboplast Time 31 SEC (24-38) Sodium Level 140 mmol/L (136-145) Potassium Level 3.9 mmol/L (3.5-5.1) Chloride Level 105 mmol/L (98-107) Carbon Dioxide Level 24 mmol/L (21-32) Anion Gap 11 (6-14) Blood Urea Nitrogen 24 mg/dL (7-20) Creatinine 1.2 mg/dL (0.6-1.0) Estimated GFR (Cockcroft-Gault) 46.1 BUN/Creatinine Ratio 20 (6-20) Glucose Level 106 mg/dL (70-99) Calcium Level 9.6 mg/dL (8.5-10.1) Magnesium Level 2.2 mg/dL (1.8-2.4) Total Bilirubin 0.4 mg/dL (0.2-1.0) Aspartate Amino Transf (AST/SGOT) 20 U/L (15-37) Alanine Aminotransferase (ALT/SGPT) 32 U/L (14-59) Alkaline Phosphatase 167 U/L (46-116) Creatine Kinase 73 U/L (26-192) Creatine Kinase MB (Mass) 1.3 ng/mL (0.0-3.6) Creatine Kinase MB Relative Index % (0-4) Troponin I Quantitative < 0.017 ng/mL (0.000-0.055) < 0.017 ng/mL (0.000-0.055) < 0.017 ng/mL (0.000-0.055) Total Protein 7.9 g/dL (6.4-8.2) Albumin 3.4 g/dL (3.4-5.0) Albumin/Globulin Ratio 0.8 (1.0-1.7) Laboratory Tests Test 03/17/18 14:48 03/17/18 14:50 03/17/18 18:30 03/17/18 21:20 Glucose (Fingerstick) 98 mg/dL (70-99) White Blood Count 9.8 x10^3/uL (4.0-11.0) Red Blood Count 4.87 x10^6/uL (3.50-5.40) Hemoglobin 14.7 g/dL (12.0-15.5) Hematocrit 43.2 % (36.0-47.0) Mean Corpuscular Volume 89 fL (79-100) Mean Corpuscular Hemoglobin 30 pg (25-35) Mean Corpuscular Hemoglobin Concent 34 g/dL (31-37) Red Cell Distribution Width 13.6 % (11.5-14.5) Platelet Count 422 x10^3/uL (140-400) Neutrophils (%) (Auto) 58 % (31-73) Lymphocytes (%) (Auto) 29 % (24-48) Monocytes (%) (Auto) 9 % (0-9) Eosinophils (%) (Auto) 3 % (0-3) Basophils (%) (Auto) 1 % (0-3) Neutrophils # (Auto) 5.7 x10^3uL (1.8-7.7) Lymphocytes # (Auto) 2.8 x10^3/uL (1.0-4.8) Monocytes # (Auto) 0.9 x10^3/uL (0.0-1.1) Eosinophils # (Auto) 0.3 x10^3/uL (0.0-0.7) Basophils # (Auto) 0.1 x10^3/uL (0.0-0.2) Prothrombin Time 13.2 SEC (11.7-14.0) Prothromb Time International Ratio 1.1 (0.8-1.1) Activated Partial Thromboplast Time 31 SEC (24-38) Sodium Level 140 mmol/L (136-145) Potassium Level 3.9 mmol/L (3.5-5.1) Chloride Level 105 mmol/L (98-107) Carbon Dioxide Level 24 mmol/L (21-32) Anion Gap 11 (6-14) Blood Urea Nitrogen 24 mg/dL (7-20) Creatinine 1.2 mg/dL (0.6-1.0) Estimated GFR (Cockcroft-Gault) 46.1 BUN/Creatinine Ratio 20 (6-20) Glucose Level 106 mg/dL (70-99) Calcium Level 9.6 mg/dL (8.5-10.1) Magnesium Level 2.2 mg/dL (1.8-2.4) Total Bilirubin 0.4 mg/dL (0.2-1.0) Aspartate Amino Transf (AST/SGOT) 20 U/L (15-37) Alanine Aminotransferase (ALT/SGPT) 32 U/L (14-59) Alkaline Phosphatase 167 U/L (46-116) Creatine Kinase 73 U/L (26-192) Creatine Kinase MB (Mass) 1.3 ng/mL (0.0-3.6) Creatine Kinase MB Relative Index % (0-4) Troponin I Quantitative < 0.017 ng/mL (0.000-0.055) < 0.017 ng/mL (0.000-0.055) < 0.017 ng/mL (0.000-0.055) Total Protein 7.9 g/dL (6.4-8.2) Albumin 3.4 g/dL (3.4-5.0) Albumin/Globulin Ratio 0.8 (1.0-1.7) Medications Current Medications Sodium Chloride 1,000 ml @ 1,000 mls/hr 1X ONCE IV Last administered on 03/17at 15:00; Start 03/17/18 at 15:00; Stop 03/17/18 at 15:59; Status DC Ondansetron HCl (Zofran) 4 mg PRN Q8HRS PRN IV NAUSEA/VOMITING; Start at 15:45; Stop 03/18/18 at 15:44 Info (Review Meds) 1 ea PRN 1X PRN SEE COMMENTS; Start 03/17/18 at 16:15 Sodium Chloride 1,000 ml @ 100 mls/hr Q10H IV Last administered on 03/18/18at 03:11; Start 03/17/18 at 16:30 Acetaminophen (Tylenol Supp) 650 mg PRN Q6HRS PRN IA FEVER > 100.5'F; Start at 16:15 Labetalol HCl (Normodyne Iv Push) 10 mg PRN Q10MIN PRN IVP HYPERTENSION, SEE COMMENTS; Start 03/17/18 at 16:15 Nicardipine HCl 50 mg/Sodium Chloride 270 ml @ 25 mls/hr CONT PRN IV HYPERTENSION, SEE COMMENTS; Start 03/17/18 at 16:15; Status UNV Ondansetron HCl (Zofran) 4 mg PRN Q6HRS PRN IV NAUSEA/VOMITING; Start at 16:15 Amlodipine Besylate (Norvasc) 10 mg DAILY PO ; Start 03/17/18 at 17:00 Atorvastatin Calcium (Lipitor) 10 mg QHS PO Last administered on 03/17/18at 21: 13; Start 03/17/18 at 21:00 Albuterol Sulfate (Ventolin Neb Soln) 2.5 mg PRN Q6HRS PRN NEB SHORTNESS OF BREATH; Start 03/17/18 at 16:30 Active Scripts Active Aspirin Ec (Aspirin) 325 Mg Tablet.dr 325 Mg PO DAILYWBKFT 30 Days Amlodipine Besylate 10 Mg Tablet 10 Mg PO DAILY 30 Days Atorvastatin Calcium 10 Mg Tablet 10 Mg PO QHS 30 Days Proair Hfa Inhaler (Albuterol Sulfate) 8.5 Gm Hfa.aer.ad 1-2 Puff INH PRN Q6HRS PRN Vitals/I & O Vital Sign - Last 24 Hours 03/17/18 03/17/18 03/17/18 03/17/18 14:41 14:53 15:06 15:36 Temp 97.7 97.7 Pulse 70 73 72 Resp 16 B/P (MAP) 144/83 (103) Pulse Ox 98 97 O2 Delivery Room Air 03/17/18 03/17/18 03/17/18 03/17/18 16:30 19:30 19:53 20:00 Temp 97.7 98.2 97.7 98.2 Pulse 86 76 Resp 17 18 B/P (MAP) 112/82 (92) 123/83 (96) Pulse Ox 95 95 97 O2 Delivery Room Air Room Air Room Air Room Air 03/17/18 03/18/18 03/18/18 23:30 03:30 07:25 Temp 98.3 98.0 97.9 98.3 98.0 97.9 Pulse 80 79 77 Resp 18 18 18 B/P (MAP) 138/88 (105) 134/92 (106) 148/87 (107) Pulse Ox 95 99 96 O2 Delivery Room Air Room Air Room Air Intake and Output 03/17/18 03/17/18 03/18/18 15:00 23:00 07:00 Intake Total 200 ml Output Total 600 ml Balance -400 ml EFREN AREVALO MD Mar 18, 2018 07:48
[2018-03-18] MEDS: amLODIPine BESYLATE 10 MG TABLET PO SCH (10:10)
--- NOTE | 2018-03-18 10:18 | PDOC ---
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 and some dysarthria Noncompliance (still smoking) Plan Await MRI of the brain I ordered MR angiogram, rather than CT angiogram, because of mild renal dysfunction Rehabilitation modalities Hold aspirin and anticoagulants Statin Blood pressure parameters per protocol Subjective Had diarrhea, denies headache Objective Vital Signs Date Time Temp Pulse Resp B/P (MAP) Pulse Ox O2 Delivery O2 Flow Rate FiO2 03/18/18 10:10 77 148/87 03/18/18 07:25 97.9 18 96 Room Air 97.9 Intake and Output 03/18/18 07:00 Intake Total 200 ml Output Total 600 ml Balance -400 ml Intake Oral 200 ml Output Urine Total 600 ml # Voids 3 PHYSICAL EXAM Alert. Oriented to time, place and person. PERRL. EOMI. CN: no focal findings. Muscle tone: normal. Muscle strength: 5-/5 right hemiparesis, otherwise 5/5 strength DTR: 2+ Plantar reflex: flexor Gait: Standing in shower without difficulty Sensory exam: no abnormal findings. No cerebellar signs elicited. Review of Relevant I have reviewed the following items corky (where applicable) has been applied. Labs Laboratory Tests Test 03/17/18 14:48 03/17/18 14:50 03/17/18 18:30 03/17/18 21:20 Glucose (Fingerstick) 98 mg/dL (70-99) White Blood Count 9.8 x10^3/uL (4.0-11.0) Red Blood Count 4.87 x10^6/uL (3.50-5.40) Hemoglobin 14.7 g/dL (12.0-15.5) Hematocrit 43.2 % (36.0-47.0) Mean Corpuscular Volume 89 fL (79-100) Mean Corpuscular Hemoglobin 30 pg (25-35) Mean Corpuscular Hemoglobin Concent 34 g/dL (31-37) Red Cell Distribution Width 13.6 % (11.5-14.5) Platelet Count 422 x10^3/uL (140-400) Neutrophils (%) (Auto) 58 % (31-73) Lymphocytes (%) (Auto) 29 % (24-48) Monocytes (%) (Auto) 9 % (0-9) Eosinophils (%) (Auto) 3 % (0-3) Basophils (%) (Auto) 1 % (0-3) Neutrophils # (Auto) 5.7 x10^3uL (1.8-7.7) Lymphocytes # (Auto) 2.8 x10^3/uL (1.0-4.8) Monocytes # (Auto) 0.9 x10^3/uL (0.0-1.1) Eosinophils # (Auto) 0.3 x10^3/uL (0.0-0.7) Basophils # (Auto) 0.1 x10^3/uL (0.0-0.2) Prothrombin Time 13.2 SEC (11.7-14.0) Prothromb Time International Ratio 1.1 (0.8-1.1) Activated Partial Thromboplast Time 31 SEC (24-38) Sodium Level 140 mmol/L (136-145) Potassium Level 3.9 mmol/L (3.5-5.1) Chloride Level 105 mmol/L (98-107) Carbon Dioxide Level 24 mmol/L (21-32) Anion Gap 11 (6-14) Blood Urea Nitrogen 24 mg/dL (7-20) Creatinine 1.2 mg/dL (0.6-1.0) Estimated GFR (Cockcroft-Gault) 46.1 BUN/Creatinine Ratio 20 (6-20) Glucose Level 106 mg/dL (70-99) Calcium Level 9.6 mg/dL (8.5-10.1) Magnesium Level 2.2 mg/dL (1.8-2.4) Total Bilirubin 0.4 mg/dL (0.2-1.0) Aspartate Amino Transf (AST/SGOT) 20 U/L (15-37) Alanine Aminotransferase (ALT/SGPT) 32 U/L (14-59) Alkaline Phosphatase 167 U/L (46-116) Creatine Kinase 73 U/L (26-192) Creatine Kinase MB (Mass) 1.3 ng/mL (0.0-3.6) Creatine Kinase MB Relative Index % (0-4) Troponin I Quantitative < 0.017 ng/mL (0.000-0.055) < 0.017 ng/mL (0.000-0.055) < 0.017 ng/mL (0.000-0.055) Total Protein 7.9 g/dL (6.4-8.2) Albumin 3.4 g/dL (3.4-5.0) Albumin/Globulin Ratio 0.8 (1.0-1.7) Laboratory Tests Test 03/17/18 14:48 03/17/18 14:50 03/17/18 18:30 03/17/18 21:20 Glucose (Fingerstick) 98 mg/dL (70-99) White Blood Count 9.8 x10^3/uL (4.0-11.0) Red Blood Count 4.87 x10^6/uL (3.50-5.40) Hemoglobin 14.7 g/dL (12.0-15.5) Hematocrit 43.2 % (36.0-47.0) Mean Corpuscular Volume 89 fL (79-100) Mean Corpuscular Hemoglobin 30 pg (25-35) Mean Corpuscular Hemoglobin Concent 34 g/dL (31-37) Red Cell Distribution Width 13.6 % (11.5-14.5) Platelet Count 422 x10^3/uL (140-400) Neutrophils (%) (Auto) 58 % (31-73) Lymphocytes (%) (Auto) 29 % (24-48) Monocytes (%) (Auto) 9 % (0-9) Eosinophils (%) (Auto) 3 % (0-3) Basophils (%) (Auto) 1 % (0-3) Neutrophils # (Auto) 5.7 x10^3uL (1.8-7.7) Lymphocytes # (Auto) 2.8 x10^3/uL (1.0-4.8) Monocytes # (Auto) 0.9 x10^3/uL (0.0-1.1) Eosinophils # (Auto) 0.3 x10^3/uL (0.0-0.7) Basophils # (Auto) 0.1 x10^3/uL (0.0-0.2) Prothrombin Time 13.2 SEC (11.7-14.0) Prothromb Time International Ratio 1.1 (0.8-1.1) Activated Partial Thromboplast Time 31 SEC (24-38) Sodium Level 140 mmol/L (136-145) Potassium Level 3.9 mmol/L (3.5-5.1) Chloride Level 105 mmol/L (98-107) Carbon Dioxide Level 24 mmol/L (21-32) Anion Gap 11 (6-14) Blood Urea Nitrogen 24 mg/dL (7-20) Creatinine 1.2 mg/dL (0.6-1.0) Estimated GFR (Cockcroft-Gault) 46.1 BUN/Creatinine Ratio 20 (6-20) Glucose Level 106 mg/dL (70-99) Calcium Level 9.6 mg/dL (8.5-10.1) Magnesium Level 2.2 mg/dL (1.8-2.4) Total Bilirubin 0.4 mg/dL (0.2-1.0) Aspartate Amino Transf (AST/SGOT) 20 U/L (15-37) Alanine Aminotransferase (ALT/SGPT) 32 U/L (14-59) Alkaline Phosphatase 167 U/L (46-116) Creatine Kinase 73 U/L (26-192) Creatine Kinase MB (Mass) 1.3 ng/mL (0.0-3.6) Creatine Kinase MB Relative Index % (0-4) Troponin I Quantitative < 0.017 ng/mL (0.000-0.055) < 0.017 ng/mL (0.000-0.055) < 0.017 ng/mL (0.000-0.055) Total Protein 7.9 g/dL (6.4-8.2) Albumin 3.4 g/dL (3.4-5.0) Albumin/Globulin Ratio 0.8 (1.0-1.7) Medications Current Medications Sodium Chloride 1,000 ml @ 1,000 mls/hr 1X ONCE IV Last administered on 03/17at 15:00; Start 03/17/18 at 15:00; Stop 03/17/18 at 15:59; Status DC Ondansetron HCl (Zofran) 4 mg PRN Q8HRS PRN IV NAUSEA/VOMITING; Start at 15:45; Stop 03/18/18 at 15:44 Info (Review Meds) 1 ea PRN 1X PRN MC SEE COMMENTS; Start 03/17/18 at 16:15 Sodium Chloride 1,000 ml @ 100 mls/hr Q10H IV Last administered on 03/18/18at 03:11; Start 03/17/18 at 16:30 Acetaminophen (Tylenol Supp) 650 mg PRN Q6HRS PRN WA FEVER > 100.5'F; Start at 16:15 Labetalol HCl (Normodyne Iv Push) 10 mg PRN Q10MIN PRN IVP HYPERTENSION, SEE COMMENTS; Start 03/17/18 at 16:15 Nicardipine HCl 50 mg/Sodium Chloride 270 ml @ 25 mls/hr CONT PRN IV HYPERTENSION, SEE COMMENTS; Start 03/17/18 at 16:15; Status UNV Ondansetron HCl (Zofran) 4 mg PRN Q6HRS PRN IV NAUSEA/VOMITING; Start at 16:15 Amlodipine Besylate (Norvasc) 10 mg DAILY PO Last administered on 03/18/18at 10 :10; Start 03/17/18 at 17:00 Atorvastatin Calcium (Lipitor) 10 mg QHS PO Last administered on 03/17/18at 21: 13; Start 03/17/18 at 21:00 Albuterol Sulfate (Ventolin Neb Soln) 2.5 mg PRN Q6HRS PRN NEB SHORTNESS OF BREATH; Start 03/17/18 at 16:30 Active Scripts Active Aspirin Ec (Aspirin) 325 Mg Tablet.dr 325 Mg PO DAILYWBKFT 30 Days Amlodipine Besylate 10 Mg Tablet 10 Mg PO DAILY 30 Days Atorvastatin Calcium 10 Mg Tablet 10 Mg PO QHS 30 Days Proair Hfa Inhaler (Albuterol Sulfate) 8.5 Gm Hfa.aer.ad 1-2 Puff INH PRN Q6HRS PRN Vitals/I & O Vital Sign - Last 24 Hours 03/17/18 03/17/18 03/17/18 03/17/18 14:41 14:53 15:06 15:36 Temp 97.7 97.7 Pulse 70 73 72 Resp 16 B/P (MAP) 144/83 (103) Pulse Ox 98 97 O2 Delivery Room Air 03/17/18 03/17/18 03/17/18 03/17/18 16:30 19:30 19:53 20:00 Temp 97.7 98.2 97.7 98.2 Pulse 86 76 Resp 17 18 B/P (MAP) 112/82 (92) 123/83 (96) Pulse Ox 95 95 97 O2 Delivery Room Air Room Air Room Air Room Air 03/17/18 03/18/18 03/18/18 03/18/18 23:30 03:30 07:25 10:10 Temp 98.3 98.0 97.9 98.3 98.0 97.9 Pulse 80 79 77 77 Resp B/P (MAP) 138/88 (105) 134/92 (106) 148/87 (107) 148/87 Pulse Ox 95 99 96 O2 Delivery Room Air Room Air Room Air Intake and Output 03/17/18 03/17/18 03/18/18 15:00 23:00 07:00 Intake Total 200 ml Output Total 600 ml Balance -400 ml ALBERTO TOVAR MD Mar 18, 2018 10:18
[2018-03-18 11:16] VITALS: BP 147/85
--- NOTE | 2018-03-18 12:55 | RAD ---
EXAM: Brain MRI without contrast; head MRA without contrast. HISTORY: Right-sided weakness. TECHNIQUE: Multiplanar and multisequence magnetic resonance imaging of the brain was performed without contrast. Magnetic resonance angiography was performed without contrast. Three-dimensional [id number] and maximum intensity projection images were obtained. COMPARISON: CT dated 03/17/2018 and MRI dated 02/01/2018. FINDINGS: Brain MRI: There is no restricted diffusion to suggest acute or subacute infarction. There are scattered foci of susceptibility effect within the left cerebellum, likely due to chronic microhemorrhage. There is no mass effect or midline shift. There is no hydrocephalus. There are multiple scattered areas of signal change throughout the cerebral white matter, consistent with chronic small vessel disease. There are foci of encephalomalacia within the cerebellar hemispheres due to chronic infarction. There are also multiple small chronic infarcts within the bilateral centrum semiovale, corpus callosum, left basal ganglia and bilateral thalami. There has been interval increase in a heterogeneous T2 hyperintense lesion within the left aspect of the pablo, measuring 1.4 cm compared to a prior measurement of 1.0 cm. The previously demonstrated restricted diffusion in this location has resolved. There is susceptibility effect associated with this lesion, consistent with chronic hemorrhage. There are few adjacent small chronic infarcts within the pablo. The orbits are unremarkable. There is left maxillary sinus mucosal thickening. The mastoid air cells are clear. There are normal flow voids within the cerebral vessels. Head MRA: There is mild narrowing of the distal left internal carotid artery at the junction of the petrous and cavernous segments, likely due to flow artifact or atherosclerosis with less than 50 percent stenosis. The anterior communicating artery is patent. There is a suspected right posterior cerebral artery. The left posterior communicating artery is hypoplastic or developmental or absent. The vertebral arteries are codominant. No aneurysm is seen. IMPRESSION: 1. Heterogeneous T2 hyperintense lesion within the pablo with associated susceptibility effect due to chronic hemorrhage, corresponding with the site of an acute or subacute infarct on the study performed 02/01/2018. There has been interval increase in the size of this lesion likely due to early chronic infarct evolution and interval hemorrhagic transformation. Continued short-term follow-up is recommended to exclude an underlying lesion in this location. 2. Multiple chronic infarcts within the bilateral centrum semiovale, corpus callosum, left basal ganglia, bilateral thalami, pablo and bilateral cerebellar hemispheres. 3. Scattered areas of signal change throughout the cerebral white matter, likely due to chronic small vessel disease. 4. Slight narrowing of the distal left internal carotid artery at the junction of the petrous and cavernous segments, consistent with flow artifact or atherosclerosis with less than 50 percent stenosis. 5. Normal cerebral vascular anatomic variants, described above. RS Compliance Statement - Stenosis calculations for CT, MR and conventional angiography are based upon measurement of the distal ICA diameter in accordance with the NASCET methodology. Stenosis calculations for carotid ultrasound studies are derived from validated velocity criteria which are known to correlate with the NASCET methodology. Electronically signed by: Elin Jeong MD (03/18/2018 12:51 PM) [id number]
[2018-03-18 14:39] VITALS: BP 148/86
--- NOTE | 2018-03-18 15:14 | PDOC3 ---
Discharge Summary Visit Information Date of Admission: Mar 17, 2018 Date of Discharge: Mar 18, 2018 Admitting Diagnosis: Slurred speech Final Diagnosis Hemorrhagic CVA, subacute Brief Hospital Course Allergies Allergies Coded Allergies Type Severity Reaction Last Updated Verified Sulfa (Sulfonamide Antibiotics) Allergy Intermediate 03/28/17 Yes codeine Allergy Intermediate 02/01/18 Yes Vital Signs Vital Signs Date Time Temp Pulse Resp B/P (MAP) Pulse Ox O2 Delivery O2 Flow Rate FiO2 03/18/18 11:16 97.5 67 17 147/85 (105) 98 Room Air 97.5 Lab Results Laboratory Tests Test 03/17/18 14:48 03/17/18 14:50 03/17/18 18:30 03/17/18 21:20 Glucose (Fingerstick) 98 mg/dL (70-99) White Blood Count 9.8 x10^3/uL (4.0-11.0) Red Blood Count 4.87 x10^6/uL (3.50-5.40) Hemoglobin 14.7 g/dL (12.0-15.5) Hematocrit 43.2 % (36.0-47.0) Mean Corpuscular Volume 89 fL (79-100) Mean Corpuscular Hemoglobin 30 pg (25-35) Mean Corpuscular Hemoglobin Concent 34 g/dL (31-37) Red Cell Distribution Width 13.6 % (11.5-14.5) Platelet Count 422 x10^3/uL (140-400) Neutrophils (%) (Auto) 58 % (31-73) Lymphocytes (%) (Auto) 29 % (24-48) Monocytes (%) (Auto) 9 % (0-9) Eosinophils (%) (Auto) 3 % (0-3) Basophils (%) (Auto) 1 % (0-3) Neutrophils # (Auto) 5.7 x10^3uL (1.8-7.7) Lymphocytes # (Auto) 2.8 x10^3/uL (1.0-4.8) Monocytes # (Auto) 0.9 x10^3/uL (0.0-1.1) Eosinophils # (Auto) 0.3 x10^3/uL (0.0-0.7) Basophils # (Auto) 0.1 x10^3/uL (0.0-0.2) Prothrombin Time 13.2 SEC (11.7-14.0) Prothromb Time International Ratio 1.1 (0.8-1.1) Activated Partial Thromboplast Time 31 SEC (24-38) Sodium Level 140 mmol/L (136-145) Potassium Level 3.9 mmol/L (3.5-5.1) Chloride Level 105 mmol/L (98-107) Carbon Dioxide Level 24 mmol/L (21-32) Anion Gap 11 (6-14) Blood Urea Nitrogen 24 mg/dL (7-20) Creatinine 1.2 mg/dL (0.6-1.0) Estimated GFR (Cockcroft-Gault) 46.1 BUN/Creatinine Ratio 20 (6-20) Glucose Level 106 mg/dL (70-99) Calcium Level 9.6 mg/dL (8.5-10.1) Magnesium Level 2.2 mg/dL (1.8-2.4) Total Bilirubin 0.4 mg/dL (0.2-1.0) Aspartate Amino Transf (AST/SGOT) 20 U/L (15-37) Alanine Aminotransferase (ALT/SGPT) 32 U/L (14-59) Alkaline Phosphatase 167 U/L (46-116) Creatine Kinase 73 U/L (26-192) Creatine Kinase MB (Mass) 1.3 ng/mL (0.0-3.6) Creatine Kinase MB Relative Index % (0-4) Troponin I Quantitative < 0.017 ng/mL (0.000-0.055) < 0.017 ng/mL (0.000-0.055) < 0.017 ng/mL (0.000-0.055) Total Protein 7.9 g/dL (6.4-8.2) Albumin 3.4 g/dL (3.4-5.0) Albumin/Globulin Ratio 0.8 (1.0-1.7) Laboratory Tests Test 03/17/18 18:30 03/17/18 21:20 Troponin I Quantitative < 0.017 ng/mL (0.000-0.055) < 0.017 ng/mL (0.000-0.055) Brief Hospital Course Ms. Jean is a 57 year old female w/PMHx HTN, smoker, prior CVA admitted with right hand weakness and dysarthria found with left pontine CVA likely hemorrhagic on CT She did have a headache last night which persists, 09/29. She denies any headache injuries or seizures. Compliant with medications but admits that she continues to smoke cigarettes. This morning feels a little stronger and feels her speech has improved. Seen by [employer] already able to tolerate dysphagia diet with no aspiration, CT and MRI reviewed by neurology, she was improving after over 24 hours of monitoring off ASA therapy, neurology reviewed imaging and PT/OT recommended ok for home discharge with follow up with neurology within 30 days to consider reinitiation of ASA therapy. CT Head 1. Multiple old cerebral, basal ganglia and pontine infarcts. 2. New focus of increased density within the left pablo corresponding to site of a recent infarct. This probably represents subacute hemorrhage. 3. MR scanning may be useful for further evaluation, if clinically indicated. MRI/MRA IMPRESSION: 1. Heterogeneous T2 hyperintense lesion within the pablo with associated susceptibility effect due to chronic hemorrhage, corresponding with the site of an acute or subacute infarct on the study performed 02/01/2018. There has been interval increase in the size of this lesion likely due to early chronic infarct evolution and interval hemorrhagic transformation. Continued short-term follow-up is recommended to exclude an underlying lesion in this location. 2. Multiple chronic infarcts within the bilateral centrum semiovale, corpus callosum, left basal ganglia, bilateral thalami, pablo and bilateral cerebellar hemispheres. 3. Scattered areas of signal change throughout the cerebral white matter, likely due to chronic small vessel disease. 4. Slight narrowing of the distal left internal carotid artery at the junction of the petrous and cavernous segments, consistent with flow artifact or atherosclerosis with less than 50 percent stenosis. 5. Normal cerebral vascular anatomic variants, described above. A/P: Acute on chronic stroke with extension of CVA - will cont statin, rehab modalities, hold ASA and anticoagulants for concomitant hemorrhagic CVA Subacute hemorrhagic pontine CVA on left - MRI per neurology PT, OT and Speech Therapy. Resume home medicines, cardiac monitoring. Seizure precautions, p.r.n. Zofran p.r.n. narcotics for pain. HTN - BP goal per neuro Smoker - cessation discussed in depth Discharge Information Condition at Discharge: Improved Follow Up: Weeks (4) Disposition/Orders: D/C to Home Scheduled Amlodipine Besylate (Amlodipine Besylate) 10 Mg Tablet, 10 MG PO DAILY for 30 Days, #30 Prescribed by: JEANNE PLAZA MD on 02/03/181149 Last Action: Continued on 03/17/181618 by Thompson Alex Atorvastatin Calcium (Atorvastatin Calcium) 10 Mg Tablet, 10 MG PO QHS for 30 Days, #30 Prescribed by: JEANNE PLAZA MD on 02/03/181149 Last Action: Continued on 03/17/181618 by Thompson Alex Scheduled PRN Albuterol Sulfate (Proair Hfa Inhaler) 8.5 Gm Hfa.aer.ad, 1-2 PUFF INH PRN Q6HRS PRN for SHORTNESS OF BREATH, #1 Ref 0 Prescribed by: DIDI BERGERON on 03/29/17 0048 Last Action: Converted on 03/17/181618 by Thompson Alex Discontinued Medications Aspirin (Aspirin Ec) 325 Mg Tablet.dr, 325 MG PO DAILYWBKFT for 30 Days, #30 Prescribed by: JEANNE PLAZA MD on 02/03/181149 Last Action: HELD on 03/17/181618 by EFREN Marin MD Mar 18, 2018 15:14
== END 2018-03-18 19:00 | disposition home or self-care (01) | DRG 65 ==
LOC: ER 14:33 → 6 SOUTH 15:35
PROVIDERS: ADMIT Internal Medicine; ATTEND Internal Medicine
DX: I62.9 Nontraumatic intracranial hemorrhage, unspecified (principal); I69.351 Hemiplegia and hemiparesis following cerebral infarction affecting right dominant side; E78.5 Hyperlipidemia, unspecified; F41.9 Anxiety disorder, unspecified; F17.210 Nicotine dependence, cigarettes, uncomplicated; I10 Essential (primary) hypertension; Z82.3 Family history of stroke; Z91.19 Patient's noncompliance with other medical treatment and regimen; Z90.49 Acquired absence of other specified parts of digestive tract; Z98.61 Coronary angioplasty status; Z88.5 Allergy status to narcotic agent; Z88.2 Allergy status to sulfonamides
CPT/HCPCS: 36415; 70450; 70544; 70551; 71045; 80053; 82553; 82962; 83735; 84484; 85025; 85610; 85730; 93005; 96360; J7030; 92523; 92610; 97535; 99285-25

== ENCOUNTER 2018-11-16 20:59 | Emergency (ER) | payer OTHER ==
[~2018-11-16] VITALS: Ht 167.6 cm; Wt 67.6 kg
[~2018-11-16 20:59] MED LIST changes: +ALBU2.5V8 INH; -AMLO10TA6 PO; +AMLO10TA8 PO; -PROAIR HFA8.5 GM INH
[2018-11-16] MEDS ORDERED: NEOMY/BACITR/POLYMYXIN OINT PACKET. TP ONE (21:45)
[2018-11-16] MEDS ORDERED: HYDROcodone/APAP 5/325MG 1 TAB TABLET PO ONE (21:45)
[2018-11-16] MEDS ORDERED: HYDR-3164 PO (22:23)
--- NOTE | 2018-11-16 22:24 | PHYS DOC ---
Past Medical History Past Medical History: CVA, Hypertension Additional Past Medical Histor: 'KIDNEY CALCIFICATION', CVA X 3 Past Surgical History: Cholecystectomy Additional Past Surgical Histo: STENTS, 'KIDNEY SX' Alcohol Use: None Drug Use: None Adult General Chief Complaint Chief Complaint: UPPER EXTREMITY INJURY HPI HPI Patient is a 58 year old [f__sex] who presents with [] Review of Systems Review of Systems Constitutional: Denies fever or chills [] Eyes: Denies change in visual acuity, redness, or eye pain [] HENT: Denies nasal congestion or sore throat [] Respiratory: Denies cough or shortness of breath [] Cardiovascular: No additional information not addressed in HPI [] GI: Denies abdominal pain, nausea, vomiting, bloody stools or diarrhea [] : Denies dysuria or hematuria [] Musculoskeletal: Denies back pain or joint pain [] Integument: Denies rash or skin lesions [] Neurologic: Denies headache, focal weakness or sensory changes [] Endocrine: Denies polyuria or polydipsia [] All other systems were reviewed and found to be within normal limits, except as documented in this note. Current Medications Current Medications Current Medications Medications (Trade) Dose Ordered Sig/Heydi Start Time Stop Time Status Last Admin Dose Admin Acetaminophen/ Hydrocodone Bitart (Lortab 5/325) 1 tab 1X ONCE 11/16/18 21:45 11/16/18 21:46 DC 11/16/18 21:54 1 TAB Neomycin/ Polymyxin/ Bacitracin (Triple Antibiotic Ointment) 1 pkt 1X ONCE 11/16/18 21:45 11/16/18 21:46 DC 11/16/18 21:54 1 PKT Allergies Allergies Allergies Coded Allergies Type Severity Reaction Last Updated Verified Sulfa (Sulfonamide Antibiotics) Allergy Intermediate 03/28/17 Yes codeine Allergy Intermediate 02/01/18 Yes Physical Exam Physical Exam Constitutional: Well developed, well nourished, no acute distress, non-toxic appearance. [] HENT: Normocephalic, atraumatic, bilateral external ears normal, oropharynx moist, no oral exudates, nose normal. [] Eyes: PERRLA, EOMI, conjunctiva normal, no discharge. [] Neck: Normal range of motion, no tenderness, supple, no stridor. [] Cardiovascular:Heart rate regular rhythm, no murmur [] Lungs & Thorax: Bilateral breath sounds clear to auscultation [] Abdomen: Bowel sounds normal, soft, no tenderness, no masses, no pulsatile masses. [] Skin: Warm, dry, no erythema, no rash. [] Back: No tenderness, no CVA tenderness. [] Extremities: No tenderness, no cyanosis, no clubbing, ROM intact, no edema. [] Neurologic: Alert and oriented X 3, normal motor function, normal sensory function, no focal deficits noted. [] Psychologic: Affect normal, judgement normal, mood normal. [] Current Patient Data Vital Signs Vital Signs Date Time Temp Pulse Resp B/P (MAP) Pulse Ox O2 Delivery O2 Flow Rate FiO2 11/16/18 21:54 18 11/16/18 21:10 98.1 104 186/101 (129) 96 Room Air 98.1 EKG EKG [] Radiology/Procedures Radiology/Procedures [] Course & Med Decision Making Course & Med Decision Making Pertinent Labs and Imaging studies reviewed. (See chart for details) [] Dragon Disclaimer Dragon Disclaimer This electronic medical record was generated, in whole or in part, using a voice recognition dictation system. Departure Departure Impression: Primary Impression: Hand contusion Additional Impression: Abrasion Disposition: 01 HOME, SELF-CARE Condition: STABLE Referrals: NO PCP (PCP) Patient Instructions: Abrasion, [id number], Contusion, [id number], Splint Care, [id number] Additional Instructions: Do not soak your wound. You may shower. Clean wound daily with soap and water. Change dressing 2 times daily. Use over the counter antibiotic ointment with each dressing change. Scripts Hydrocodone/Apap 5-325 (NORCO 5-325 TABLET) 1 Each Tablet 0.5-1 TAB PO PRN Q6HRS PRN for PAIN, #10 TAB 0 Refills Prov: SAMIRA MARTE DO 11/16/18 Problem Qualifiers Primary Impression: Hand contusion Encounter type: initial encounter Laterality: right Qualified Codes: S60.221A - Contusion of right hand, initial encounter SAMIRA MARTE DO Nov 16, 2018 22:24
[2018-11-16 23:06] VITALS: BP 166/93
--- NOTE | 2018-11-17 08:33 | RAD ---
Exam performed: Right hand 3 views. Indication: Pain and swelling second and third digits. Date of Service: 11/16/2018 Comparison: None available Discussion: PA, oblique lateral radiographs of the hand are obtained. There is narrowing of the first carpometacarpal joint. The remainder alignment appears preserved. There is mild soft tissue swelling. No foreign body. Impression: Degenerative arthrosis involving the first carpometacarpal joint with diffuse soft tissue swelling. No acute bony abnormality seen. Electronically signed by: Mami Condon MD (11/17/2018 8:30 AM) [facility]
== END 2018-11-16 23:49 | disposition home or self-care (01) ==
LOC: ER 20:59
DX: S60.221A Contusion of right hand, initial encounter (principal); I10 Essential (primary) hypertension; Z86.73 Personal history of transient ischemic attack (TIA), and cerebral infarction without residual deficits; Z90.49 Acquired absence of other specified parts of digestive tract; Z88.2 Allergy status to sulfonamides; Z88.5 Allergy status to narcotic agent; W22.8XXA Striking against or struck by other objects, initial encounter; Y93.89 Activity, other specified; Y92.89 Other specified places as the place of occurrence of the external cause; Y99.8 Other external cause status
CPT/HCPCS: 29125; 73130; 99284

== ENCOUNTER 2019-02-05 05:30 | Emergency (ER) | payer MEDICAID, OTHER ==
[~2019-02-05] VITALS: Ht 167.6 cm; Wt 61.2 kg
[~2019-02-05 05:30] MED LIST changes: +HYDR-3164 PO
[2019-02-05] MEDS ORDERED: IV NORMAL SALINE 1000ML BAG 1,000 ML IV SCH (06:30)
[2019-02-05] MEDS ORDERED: KETOROLAC 30 MG/ML VIAL. IVP ONE (06:30)
[2019-02-05] MEDS ORDERED: methylPREDNISolone SOD SUCC PF 125 MG/2 ML VIAL. IV ONE (06:30)
[2019-02-05] MEDS ORDERED: IPRATRPIUM/ALBUTEROL 0.5/2.5MG 3 ML NEBU. NEB ONE (06:30)
[2019-02-05 06:43] LABS: BILIRUBIN,URINE NEGATIVE (NEG); CLARITY,URINE CLEAR; COLOR,URINE YELLOW; NITRITE,URINE NEGATIVE (NEG); PH,URINE 6.5; PROTEIN,URINE 30 mg/dL (NEG-TRACE)
[2019-02-05 06:46] LABS: BACTERIA,URINE MANY /HPF (0-FEW); SQUAMOUS EPITHELIAL CELL,UR MANY /LPF
[2019-02-05 06:47] LABS: WBC,URINE >40 /HPF (0-4)
[2019-02-05 07:16] LABS: BASO # 0.1 x10^3/uL (0.0-0.2); BASO % 1 % (0-3); EOS # 0.4 x10^3/uL (0.0-0.7); EOS % 5 % (0-3); HEMATOCRIT 40.1 % (36.0-47.0); HEMOGLOBIN 13.4 g/dL (12.0-15.5); LYMPH # 2.8 x10^3/uL (1.0-4.8); LYMPH % 34 % (24-48); MEAN CORPUSCULAR HEMOGLOBIN 29 pg (25-35); MEAN CORPUSCULAR HGB CONC 33 g/dL (31-37); MEAN CORPUSCULAR VOLUME 88 fL (79-100); MONO # 0.7 x10^3/uL (0.0-1.1); MONO % 8 % (0-9); NEUT # 4.2 x10^3/uL (1.8-7.7); NEUT % 51 % (31-73); PLATELET COUNT 357 x10^3/uL (140-400); RED BLOOD COUNT 4.56 x10^6/uL (3.50-5.40); RED CELL DISTRIBUTION WIDTH 13.8 % (11.5-14.5); WHITE BLOOD COUNT 8.2 x10^3/uL (4.0-11.0)
[2019-02-05 07:26] LABS: CALCIUM 8.9 mg/dL (8.5-10.1); GFR 56.7; POTASSIUM 3.1 mmol/L (3.5-5.1)
--- NOTE | 2019-02-05 07:28 | PHYS DOC ---
Past Medical History Past Medical History: CVA, Hypertension, Stroke Additional Past Medical Histor: 'KIDNEY CALCIFICATION', CVA X 3 Past Surgical History: Cholecystectomy Additional Past Surgical Histo: STENTS, 'KIDNEY SX' Alcohol Use: None Drug Use: None Adult General Chief Complaint Chief Complaint: cough and congestion and chest pain [facility] HPI Patient is a 58 year old female who presents with complaining of cough and congestion and chest pain. Patient complaining of nonproductive cough and nasal congestion that started 4 weeks ago associated with shortness of breath with supine position and mild activity. Patient states she had fever 4 weeks ago that resolved spontaneously. Patient has had nasal congestion and sore throat and was treated for the last couple days she has had substernal aching chest pain that getting worse with cough and rated her pain 4/10. Patient denies nausea and vomiting, neck pain, diarrhea and constipation, urinary symptom. Patient currently smoking but 8 cigarettes a day. Review of Systems Review of Systems Constitutional: Denies fever or chills [] Eyes: Denies change in visual acuity, redness, or eye pain [] HENT: Reports nasal congestion or sore throat Respiratory: Reports cough and congestion Cardiovascular: No additional information not addressed in HPI [] GI: Denies abdominal pain, nausea, vomiting, bloody stools or diarrhea [] : Denies dysuria or hematuria [] Musculoskeletal: Denies back pain or joint pain [] Integument: Denies rash or skin lesions [] Neurologic: Denies headache, focal weakness or sensory changes [] Endocrine: Denies polyuria or polydipsia [] All other systems were reviewed and found to be within normal limits, except as documented in this note. Current Medications Current Medications Current Medications Medications (Trade) Dose Ordered Sig/Heydi Start Time Stop Time Status Last Admin Dose Admin Albuterol/ Ipratropium (Duoneb) 3 ml 1X ONCE 02/05/19 06:30 02/05/19 06:31 DC 02/05/19 06:30 3 ML Ceftriaxone Sodium (Rocephin) 1 gm 1X ONCE 02/05/19 07:30 02/05/19 07:31 DC 02/05/19 07:40 1 GM Clonidine HCl (Catapres) 0.1 mg 1X ONCE 02/05/19 07:30 02/05/19 07:31 DC 02/05/19 07:41 0.1 MG Ketorolac Tromethamine (Toradol 30mg Vial) 30 mg 1X ONCE 02/05/19 06:30 02/05/19 06:31 DC 02/05/19 06:30 30 MG Methylprednisolone Sodium Succinate (SOLU-Medrol 125MG VIAL) 125 mg 1X ONCE 02/05/19 06:30 02/05/19 06:31 DC 02/05/19 06:31 125 MG Potassium Chloride (Klor-Con) 40 meq 1X ONCE 02/05/19 07:30 02/05/19 07:31 DC 02/05/19 07:41 40 MEQ Sodium Chloride 1,000 ml @ 1,000 mls/hr Q1H 02/05/19 06:30 02/05/19 07:29 DC 02/05/19 06:30 1,000 MLS/HR Allergies Allergies Allergies Coded Allergies Type Severity Reaction Last Updated Verified Sulfa (Sulfonamide Antibiotics) Allergy Intermediate 03/28/17 Yes codeine Allergy Intermediate 02/01/18 Yes Physical Exam Physical Exam Constitutional: Well developed, well nourished, mild distress, non-toxic appearance. [] HENT: Normocephalic, atraumatic, bilateral external ears normal, oropharynx moist, no oral exudates, nasal mucosa congested. [] Eyes: PERRLA, EOMI, conjunctiva normal, no discharge. [] Neck: Normal range of motion, no tenderness, supple, no stridor. [] Cardiovascular:Heart rate regular rhythm, no murmur [] Lungs & Thorax: Bilateral breath sounds clear to auscultation [] Abdomen: Bowel sounds normal, soft, no tenderness, no masses, no pulsatile masses. [] Skin: Warm, dry, no erythema, no rash. [] Back: No tenderness, no CVA tenderness. [] Extremities: No tenderness, no cyanosis, no clubbing, ROM intact, no edema. [] Neurologic: Alert and oriented X 3, normal motor function, normal sensory function, no focal deficits noted. [] Psychologic: Affect normal, judgement normal, mood normal. [] Current Patient Data Vital Signs Vital Signs Date Time Temp Pulse Resp B/P (MAP) Pulse Ox O2 Delivery O2 Flow Rate FiO2 02/05/19 07:56 88 20 173/82 (112) 95 Room Air 02/05/19 05:45 97.3 97.3 Lab Values Laboratory Tests Test 02/05/19 05:45 02/05/19 05:55 Urine Collection Type Unknown Urine Color Yellow Urine Clarity Clear Urine pH 6.5 Urine Specific [place] 1.010 Urine Protein 30 mg/dL (NEG-TRACE) Urine Glucose (UA) Negative mg/dL (NEG) Urine Ketones (Stick) Negative mg/dL (NEG) Urine Blood Negative (NEG) Urine Nitrite Negative (NEG) Urine Bilirubin Negative (NEG) Urine Urobilinogen Dipstick 1.0 mg/dL (0.2 mg/dL) Urine Leukocyte Esterase Large (NEG) Urine RBC 1-2 /HPF (0-2) Urine WBC >40 /HPF (0-4) Urine Squamous Epithelial Cells Many /LPF Urine Bacteria Many /HPF (0-FEW) Urine Mucus Slight /LPF White Blood Count 8.2 x10^3/uL (4.0-11.0) Red Blood Count 4.56 x10^6/uL (3.50-5.40) Hemoglobin 13.4 g/dL (12.0-15.5) Hematocrit 40.1 % (36.0-47.0) Mean Corpuscular Volume 88 fL (79-100) Mean Corpuscular Hemoglobin 29 pg (25-35) Mean Corpuscular Hemoglobin Concent 33 g/dL (31-37) Red Cell Distribution Width 13.8 % (11.5-14.5) Platelet Count 357 x10^3/uL (140-400) Neutrophils (%) (Auto) 51 % (31-73) Lymphocytes (%) (Auto) 34 % (24-48) Monocytes (%) (Auto) 8 % (0-9) Eosinophils (%) (Auto) 5 % (0-3) H Basophils (%) (Auto) 1 % (0-3) Neutrophils # (Auto) 4.2 x10^3/uL (1.8-7.7) Lymphocytes # (Auto) 2.8 x10^3/uL (1.0-4.8) Monocytes # (Auto) 0.7 x10^3/uL (0.0-1.1) Eosinophils # (Auto) 0.4 x10^3/uL (0.0-0.7) Basophils # (Auto) 0.1 x10^3/uL (0.0-0.2) Sodium Level 141 mmol/L (136-145) Potassium Level 3.1 mmol/L (3.5-5.1) L Chloride Level 105 mmol/L (98-107) Carbon Dioxide Level 24 mmol/L (21-32) Anion Gap 12 (6-14) Blood Urea Nitrogen 18 mg/dL (7-20) Creatinine 1.0 mg/dL (0.6-1.0) Estimated GFR (Cockcroft-Gault) 56.7 BUN/Creatinine Ratio 18 (6-20) Glucose Level 138 mg/dL (70-99) H Calcium Level 8.9 mg/dL (8.5-10.1) Magnesium Level 2.1 mg/dL (1.8-2.4) Total Bilirubin 0.2 mg/dL (0.2-1.0) Aspartate Amino Transferase (AST) 14 U/L (15-37) L Alanine Aminotransferase (ALT) 26 U/L (14-59) Alkaline Phosphatase 138 U/L (46-116) H Creatine Kinase 78 U/L (26-192) Troponin I Quantitative < 0.017 ng/mL (0.000-0.055) GZ-Vbe-Z-Type Natriuretic Peptide 180 pg/mL (0-124) H Total Protein 7.2 g/dL (6.4-8.2) Albumin 3.2 g/dL (3.4-5.0) L Albumin/Globulin Ratio 0.8 (1.0-1.7) L Laboratory Tests 02/05/19 05:55 Laboratory Tests 02/05/19 05:55 EKG EKG EKG interpreted by me. EKG at 0549 showed normal sinus rhythm at rate of 67, left axis deviation, left anterior fascicular block, T-wave abnormalities anterior leads, no acute history and T-wave abnormalities. Radiology/Procedures Radiology/Procedures [][facility] [address] [place] [address] IMAGING REPORT Signed PATIENT: TIMMY RANGEL ACCOUNT: [id number] : 1960 LOCATION: ER AGE: 58 SEX: F EXAM STATUS: REG ER ORD. PHYSICIAN: VIRIDIANA REDMOND MD REASON: cough, chest pain PROCEDURE: CHEST PA & LATERAL CHEST PA LATERAL History: Cough and chest pain Comparison: 03/17/2018 Portable Chest X-ray Exam. Findings: Frontal and lateral views of chest were obtained. The cardiomediastinal silhouette is normal. Pulmonary vasculature is normal. The lungs are clear. No pleural effusion or pneumothorax is seen. There is no acute bone abnormality. IMPRESSION: No acute cardiopulmonary process. Electronically signed by: Rashid Mishra MD (02/05/2019 7:39 AM) [facility] DICTATED and SIGNED BY: RASHID MISHRA MD DATE: 02/05/19 0739 Course & Med Decision Making Course & Med Decision Making Pertinent Labs and Imaging studies reviewed. (See chart for details) Evaluation of patient in ER showed 58-year-old smoking female patient with complaining of cough and congestion for 4 weeks and chest pain for 2 days. Patient had unremarkable chest x-ray and labs and treated with IV fluid, Toradol, Medrol, Duo neb and Rocephin in ER felt better. Patient was advised to quit smoking. I've spoken with the patient and/or caregivers. I've explained the patient's condition, diagnosis and treatment plan based on information available to me at this time. I've answered the patient's and/or caregivers questions and addressed any concerns. The patient and/or caregivers have a good understanding the patient's diagnosis, condition and treatment plan as can be expected at this point. Vital signs have been stabilized. The patient's condition is stable for discharge from the emergency department. The patient will pursue further outpatient evaluation with her primary care provider or other designated consulting physician as outlined in the discharge instructions. Patient and/or caregivers are agreeable to this plan of care and follow-up instructions have been explained in detail. The patient and/or care givers have received these instructions in written format and expressed understanding of these discharge instructions. The patient and her caregivers are aware that if any significant change in condition or worsening of symptoms should prompt him to immediately return to this of the closest emergency department. If an emergent department is not readily available I would encourage him to call 911. Hugo Disclaimer Dragon Disclaimer This electronic medical record was generated, in whole or in part, using a voice recognition dictation system. Departure Departure Impression: Primary Impression: Acute exacerbation of chronic bronchitis Additional Impressions: Urinary tract infection Chest wall pain Hypokalemia Tobacco abuse Tobacco abuse counseling Hypertensive urgency Disposition: 01 HOME, SELF-CARE (at 0800) Condition: IMPROVED Referrals: NO PCP (PCP) Patient Instructions: Acute Bronchitis, Hypertension, Hypokalemia, Smoking Cessation, Tips For Success, Urinary Tract Infection Additional Instructions: Drink plenty of liquids Follow-up with your primary care physician in 3-5 days Return to ER if not getting better Scripts Tramadol Hcl (ULTRAM) 50 Mg Tablet 50 MG PO Q6HRS PRN for PAIN, #14 TAB 0 Refills Prov: VIRIDIANA REDMOND MD 02/05/19 Benzonatate (TESSALON PERLE) 100 Mg Capsule 1 CAP PO TID for cough, #21 CAP Prov: VIRIDIANA REDMOND MD 02/05/19 Albuterol Sulfate (PROAIR HFA INHALER) 8.5 Gm Hfa.aer.ad 2 PUFF INH PRN Q6HRS PRN for SHORTNESS OF BREATH, #1 INHALER 0 Refills Prov: VIRIDIANA REDMOND MD 02/05/19 Methylprednisolone (MEDROL) 4 Mg Tab.ds.pk 1 PKG PO UD for inflammation, #1 PKG Prov: VIRIDIANA REDMOND MD 02/05/19 Cephalexin (KEFLEX) 500 Mg Capsule 2 CAP PO Q12HR, #40 CAP Prov: VIRIDIANA REDMOND MD 02/05/19 Problem Qualifiers Additional Impressions: Urinary tract infection Urinary tract infection type: site unspecified Hematuria presence: without hematuria Qualified Codes: N39.0 - Urinary tract infection, site not specified VIRIDIANA REDMOND MD Feb 05, 2019 07:28
[2019-02-05] MEDS ORDERED: cloNIDine HCL 0.1 MG TABLET PO ONE (07:30)
[2019-02-05] MEDS ORDERED: POTASSIUM CHLORIDE 20 MEQ TABLET.ER. PO ONE (07:30)
[2019-02-05] MEDS ORDERED: cefTRIAXone IV Push 1 GM VIAL. IVP ONE (07:30)
[2019-02-05 07:31] LABS: ALBUMIN 3.2 g/dL (3.4-5.0); ALBUMIN/GLOBULIN RATIO 0.8 (1.0-1.7); MAGNESIUM 2.1 mg/dL (1.8-2.4); TOTAL BILIRUBIN 0.2 mg/dL (0.2-1.0); TOTAL PROTEIN 7.2 g/dL (6.4-8.2)
--- NOTE | 2019-02-05 07:31 | EKG ---
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
--- NOTE | 2019-02-05 07:41 | RAD ---
CHEST PA LATERAL History: Cough and chest pain Comparison: 03/17/2018 Portable Chest X-ray Exam. Findings: Frontal and lateral views of chest were obtained. The cardiomediastinal silhouette is normal. Pulmonary vasculature is normal. The lungs are clear. No pleural effusion or pneumothorax is seen. There is no acute bone abnormality. IMPRESSION: No acute cardiopulmonary process. Electronically signed by: Rashid Rivas MD (02/05/2019 7:39 AM) [facility]
[2019-02-05 07:56] VITALS: BP 173/82
[2019-02-05] MEDS ORDERED: TRAM-48 PO (08:03)
[2019-02-05] MEDS ORDERED: CEPH-264 PO (08:03)
[2019-02-05] MEDS ORDERED: METH4TAB2 PO (08:03)
[2019-02-05] MEDS ORDERED: BENZ100C PO (08:03)
[2019-02-05] MEDS ORDERED: ALBU2.5V8 INH (08:03)
== END 2019-02-05 08:18 | disposition home or self-care (01) ==
LOC: ER 05:30
DX: J42 Unspecified chronic bronchitis (principal); N39.0 Urinary tract infection, site not specified; R07.89 Other chest pain; E87.6 Hypokalemia; I16.0 Hypertensive urgency; F17.210 Nicotine dependence, cigarettes, uncomplicated; Z71.6 Tobacco abuse counseling; Z86.73 Personal history of transient ischemic attack (TIA), and cerebral infarction without residual deficits; Z90.49 Acquired absence of other specified parts of digestive tract; Z88.5 Allergy status to narcotic agent; Z88.2 Allergy status to sulfonamides
CPT/HCPCS: 36415; 71046; 80053; 81001; 82550; 83735; 83880; 84484; 85025; 87086; 87186; 93005; 94640; 96374; 96375; 99285; J0696; J1885; J2930; J7030; J7620